=== PATIENT | male | born 1980 | race Caucasian/White ===

== ENCOUNTER → 2020-06-30 13:29 | Outpatient (REF) | payer MEDICAID, SELFPAY ==
--- NOTE | 2020-06-30 13:40 | ECG_ITS ---
Test Reason : PT ON HIGH RISK MED Blood Pressure : / mmHG Vent. Rate : 083 BPM Atrial Rate : 083 BPM P-R Int : 120 ms QRS Dur : 068 ms QT Int : 348 ms P-R-T Axes : 053 039 025 degrees QTc Int : 408 ms Normal sinus rhythm Normal ECG No previous ECGs available Referred By: Jose E Ruff Electronically Signed By:DONALDO AHUMADA MD
== END ==
LOC: HO.CARD 13:29
PROVIDERS: Visit Provider Psychiatry & Neurology Child & Adolescent Psychiatry
DX: Z79.899 Other long term (current) drug therapy (principal)
CPT/HCPCS: 93005

== ENCOUNTER 2020-07-19 20:23 | Emergency (ER) | payer MEDICAID, SELFPAY ==
[2020-07-19 20:25] VITALS: BP 163/85; PULSE 117; RESP 16; TEMP 36.3; O2SAT 100; BMI 29.6
[2020-07-19 20:39] VITALS: BP 154/85; PULSE 100; RESP 16; TEMP 36.6; O2SAT 100
[2020-07-19 21:17] LABS: COVID-19 Test Negative (Negative)
[2020-07-19 21:36] LABS: Amphetamine Screen Urine Not Detected (Not Detect); Barbiturates, Urine Not Detected (Not Detect); Benzodiazepines Screen Urine Not Detected (Not Detect); Cannabinoid Screen Urine Not Detected (Not Detect); Cocaine Screen Urine Not Detected (Not Detect); Opiate Screen Urine Not Detected (Not Detect); Phencyclidine Screen Urine Not Detected (Not Detect)
--- NOTE | 2020-07-19 21:45 | ED_ITS ---
HPI - Medical Clearance General Chief complaint: Medical Clearance Stated complaint: CRISIS Time Seen by Provider: 07/19/20 20:50 Source: patient Mode of arrival: ambulatory Limitations: no limitations History of Present Illness HPI Narrative: 39-year-old male presenting to the ED for medical clearance to go back to the detention requiring a COVID test and a drugs of abuse screen. Denies any URI or COVID like symptoms. Denies any history of drug usage. Reports he only smokes cigarettes. Denies any SI/HI/auditory visual hallucinations thoughts of self-injury. Related Information Allergies Allergy/AdvReac Type Severity Reaction Status Date / Time No Known Allergies Allergy Verified 07/19/20 20:25 Review of Systems Review of Systems: Constitutional : No Fever, No Chills ENT/Mouth : No Ear Pain, No Nasal Congestion, No sore throat Eyes: No Eye Pain, No Swelling, No Redness Cardiovascular : No Chest Pain, No SOB Respiratory : No Cough, No Sputum, No Dyspnea Gastrointestinal : No ingestions, No Nausea, No Vomiting, No Diarrhea, No Hematochezia, No Melena Genitourinary : No Dysuria, No Urinary Frequency, No Hematuria Musculoskeletal : No Myalgias Skin : No Skin Lesions, No rash Neuro : No Weakness, No Numbness, No Paresthesias, No Dizziness, No Headache Psych : No Anxiety, No Depression, No SI/HI, No AVH, No thoughts of self injury Heme/Lymph: No Lymphadenopathy Endocrine : No Polyuria, No Polydipsia Yes all other systems are reviewed and are negative PMFSH Past Medical History Attestation statement: The following information was validated with the patient. Medical History Diabetes Social History Social History Alcohol intake: never Smoking Status: Current every day smoker Use of substances other than those prescribed or required for medical reasons: No Advance Directives: No Advance Directives Information Provided: No Physical Exam Vital Signs: Vital Signs: Last Vital Signs Temp 97.8 F 07/19/20 20:39 Pulse 100 07/19/20 20:39 Resp 16 07/19/20 20:39 BP 154/85 H 07/19/20 20:39 Pulse Ox 100 07/19/20 20:39 Body Mass Index 29.6 vital signs have been reviewed as normal and appeared to be correct. Blood pressure normal. Heart rate normal. Respiration rate normal. Temperature normal. Oxygen saturation normal. Appearance: Alert. Oriented X3. No acute distress. Head: Normal external exam. Normocephalic. Atraumatic. No Lyn signs noted. No raccoon eyes noted Eyes: PERRLA. EOMI. Conjunctiva and sclera normal. Eyelids normal. ENT: EAC normal. TM's Normal. Pharynx normal. Uvula midline. Moist mucous membranes. No trismus noted. No drooling noted. No muffled voice noted. Neck: Normal inspection. Neck supple. FROM. No adenopathy. Thyroid Normal. No meningeal signs. No neck mass noted. CVS: Normal heart rate and rhythm. Heart sound normal. No murmurs noted. Pulses normal throughout. Respiratory: No respiratory distress. Painless inspiration. Breath sounds normal. No wheezes/rales/rhonchi noted. Chest nontender. No accessory muscle usage noted or decreased air movement noted. Abdomen: Soft and nontender. Bowel sounds normal in all 4 quadrants. No distention noted. No organomegaly noted. No visible injury noted. Back: No CVA tenderness. Full range of motion noted. Skin: Skin warm and dry. Normal skin color. Normal skin turgor. No rashes/lesions/lacerations noted. Extremities: No lower extremity edema. Extremities exhibit normal range of motion. Extremities nontender. Neuro: Oriented X 3. No motor deficit. No sensory deficit. Reflexes normal. Psych: Appearance grossly normal, well-kept, mental status normal, speech and movement normal, speech clear, Is cooperative. Normal thought process. Normal thought content. Normal good insight. Judgment good. Course Course Course Narrative: COVID swab negative. Drugs of abuse screen negative for all drugs. Patient denies any SI/HI/auditory visual hallucinations thoughts of self-injury therefore is medically cleared at this time awaiting to be picked up from the detention at this time. Patient instructed to return if any new or worsening symptoms to follow-up with primary care provider. Patient understands agrees with this plan MDM - Medical Clearance Medical Records Attestation: I reviewed the patient's medical records. Lab Data Attestation: I reviewed the patient's lab results. Labs: Lab Results 07/19/20 07/19/20 Range/Units 20:56 21:09 Urine Opiates Screen Not Detected (Not Detect) Ur Barbiturates Screen Not Detected (Not Detect) Ur Phencyclidine Scrn Not Detected (Not Detect) Ur Amphetamines Screen Not Detected (Not Detect) U Benzodiazepines Scrn Not Detected (Not Detect) Urine Cocaine Screen Not Detected (Not Detect) U Marijuana (THC) Screen Not Detected (Not Detect) COVID-19 (JACKIE) Negative (Negative) COVID-19 Clin Com See Note Discharge Plan Discharge Clinical Impression: Wellness examination Patient Disposition: Home, Self-Care Instructions: Medical Clearance for Psychiatric Care (ED) Print Language: Albanian
--- NOTE | 2020-07-19 21:53 | PC.NURSE ---
[facility] NOTIFIED OF COVID NEGATIVE TEST AND THEY ARE ON THEIR WAY TO PICK PT UP TO RETURN TO [facility].
== END 2020-07-19 22:35 | disposition home or self-care (01) ==
PROVIDERS: Physician Assistant Medical; Emergency Provider Emergency Medicine Emergency Medical Services
DX: Z20.828 Contact with and (suspected) exposure to other viral communicable diseases (principal); F17.200 Nicotine dependence, unspecified, uncomplicated; Z71.6 Tobacco abuse counseling
CPT/HCPCS: 80307; 87635; 99283; 99284

== ENCOUNTER 2020-07-20 13:29 | Inpatient (IN) | payer OTHER, SELFPAY ==
[2020-07-20 13:47] VITALS: BP 135/93; PULSE 102; RESP 19; TEMP 36.3; O2SAT 99; BMI 38.4
[2020-07-20 13:57] VITALS: BP 135/93; PULSE 102; RESP 19; TEMP 36.3; O2SAT 99
--- NOTE | 2020-07-20 13:59 | ED.PSYCH ---
HPI - Psych General Chief Complaint: Psychiatric Symptoms Stated Complaint: DOES NOT FEEL SAFE AT HOME Time Seen by Provider: 07/20/20 13:57 Source: EMS Mode of arrival: EMS Limitations: no limitations History of Present Illness MD complaint: feels depressed Onset (ago): day(s) (2) Duration: constant History of same: Yes Relieving factors: none Exacerbating factors: other (worse due to half-way) Context: significant life stressor Associated psychiatric symptoms: depression and suicidal ideation Associated symptoms: denies other symptoms Treatments prior to arrival: none If self harm: admits thoughts of self harm Related Data Home Medications Medication Instructions Recorded Confirmed chlorpromazine 200 mg PO TID 07/20/20 07/20/20 docusate sodium 100 mg PO BID 07/20/20 07/20/20 insulin glargine 56 unit SUBCUT QPM 07/20/20 07/20/20 insulin lispro 1 sliding scale dose SUBCUT 07/20/20 07/20/20 USEASDIRECTD lorazepam 0.5 mg PO TID 07/20/20 07/20/20 metformin 500 mg PO BID 07/20/20 07/20/20 metoprolol tartrate 25 mg PO BID 07/20/20 07/20/20 multivitamin 1 tab PO DAILY 07/20/20 07/20/20 omeprazole 20 mg PO DAILY 07/20/20 07/20/20 sennosides [senna] 17.2 mg PO DAILY PRN 07/20/20 07/20/20 simvastatin 20 mg PO BEDTIME 07/20/20 07/20/20 Allergies Allergy/AdvReac Type Severity Reaction Status Date / Time No Known Allergies Allergy Verified 07/19/20 20:25 Review of Systems Review of Systems: Constitutional : No Fever, No Chills ENT/Mouth : No Ear Pain, No Nasal Congestion, No sore throat Eyes: No Eye Pain, No Swelling, No Redness Cardiovascular : No Chest Pain, No SOB Respiratory : No Cough, No Sputum, No Dyspnea Gastrointestinal : No Nausea, No Vomiting, No Diarrhea, No Hematochezia, No Melena Genitourinary : No Dysuria, No Urinary Frequency, No Hematuria Musculoskeletal : No Myalgias Skin : No Skin Lesions, No rash Neuro : No Weakness, No Numbness, No Paresthesias, No Dizziness, No Headache Psych : positive Anxiety, positive Depression, positive SI no HI Heme/Lymph: No Lymphadenopathy Endocrine : No Polyuria, No Polydipsia All other systems reviewed and are negative [facility] Past Medical History Attestation statement: The following information was validated with the patient. Medical History Chronic mental illness Diabetes Social History Social History Alcohol intake: former Smoking Status: Current some day smoker Smoked in Last 30 Days: Yes Use of substances other than those prescribed or required for medical reasons: No Advance Directives: No Advance Directives Information Provided: No Physical Exam Vital Signs: Vital Signs: Last Vital Signs Temp 97.4 F 07/20/20 13:57 Pulse 102 H 07/20/20 13:57 Resp 19 07/20/20 13:57 BP 135/93 H 07/20/20 13:57 Pulse Ox 99 07/20/20 13:57 Body Mass Index 38.4 Appearance: Alert. Oriented X3. No acute distress. Eyes: Pupils equal, round and reactive to light. ENT: Pharynx normal. Neck: Normal inspection. Neck supple. CVS: Normal heart rate and rhythm. Pulses normal. Respiratory: No respiratory distress. Breath sounds normal. Abdomen: Soft and nontender. Skin: Skin warm and dry. Normal skin color. Normal skin turgor. Extremities: No lower extremity edema. No calf ttp Neuro: Oriented X 3. No motor deficit. No sensory deficit. CN 2 - 12 intact Psych: anxious flat affect, states he is suicidal but no plan Course Course Course Narrative: signed out pending [facility] consult MDM - Psych MDM Narrative Medical decision making narrative: 39 yo male with chronic mental illness just put into new half-way states he is unsafe and doesn't want to live there, discussed he needs to follow up with his team and [facility] he then stated he was suicidal at this time will refer to [facility] Lab Data Labs: Lab Results 07/20/20 Range/Units 14:06 Urine Opiates Screen Not Detected (Not Detect) Ur Barbiturates Screen Not Detected (Not Detect) Ur Phencyclidine Scrn Not Detected (Not Detect) Ur Amphetamines Screen Not Detected (Not Detect) U Benzodiazepines Scrn Not Detected (Not Detect) Urine Cocaine Screen Not Detected (Not Detect) U Marijuana (THC) Screen Not Detected (Not Detect) Discharge Plan Discharge Clinical Impression: Depression Qualifiers: Depression Type: unspecified Qualified Code(s): F32.9 - Major depressive disorder, single episode, unspecified Prescriptions: No Action lorazepam 0.5 mg Tablet 0.5 mg PO TID RF: 0 chlorpromazine 200 mg Tablet 200 mg PO TID RF: 0 omeprazole 20 mg Capsule,Delayed Release(Dr/Ec) 20 mg PO DAILY RF: 0 multivitamin Tablet 1 tab PO DAILY RF: 0 metformin 500 mg Tablet 500 mg PO BID RF: 0 sennosides [senna] 8.6 mg Tablet 17.2 mg PO DAILY PRN (Reason: Constipation) RF: 0 simvastatin 20 mg Tablet 20 mg PO BEDTIME RF: 0 docusate sodium 100 mg Capsule 100 mg PO BID RF: 0 insulin lispro 100 unit/mL Cartridge 1 sliding scale dose SUBCUT USEASDIRECTD RF: 0 metoprolol tartrate 25 mg Tablet 25 mg PO BID RF: 0 insulin glargine 100 unit/mL Cartridge 56 unit SUBCUT QPM RF: 0
--- NOTE | 2020-07-20 14:01 | PC.NURSE ---
Upon arrival pt cooperative with spring coverer, denied SI/HI states he feels unsafe in his alf. PT states he spent 4 months at [facility] then 4 months at [facility] after not taking his medicaitons for a long time. Pt states he is now in a [facility] alf and feels unsafe with the other residents. Pt requesting to be hospitalized, stated that he feels like hurting himself after speaking with provider.
[2020-07-20 14:41] LABS: Amphetamine Screen Urine Not Detected (Not Detect); Barbiturates, Urine Not Detected (Not Detect); Benzodiazepines Screen Urine Not Detected (Not Detect); Cannabinoid Screen Urine Not Detected (Not Detect); Cocaine Screen Urine Not Detected (Not Detect); Opiate Screen Urine Not Detected (Not Detect); Phencyclidine Screen Urine Not Detected (Not Detect)
[2020-07-20 15:51] VITALS: BP 129/76; PULSE 86; RESP 18; TEMP 36.4; O2SAT 99
[2020-07-20 15:57] LABS: Glucose, Whole Blood 245 mg/dL (60-115)
[2020-07-20] MEDS: LORazepam 1 MG TABLET PO (16:11)
[2020-07-20 18:09] LABS: Glucose, Whole Blood 302 mg/dL (60-115)
[2020-07-20] MEDS: Insulin Lispro 100 UNIT/ML 3 ML VIAL SUBCUT ×2 (18:13→21:51)
--- NOTE | 2020-07-20 19:10 | PC.NURSE ---
Report received. PT is resting in bed. Calm and cooperative. Waiting to be transferred to .
[2020-07-20 19:13] LABS: Basophils Percent Auto 0.4 % (0-2); Eosinophils Absolute Auto 0.1 X10*3/uL (0.0-0.4); Eosinophils Percent Auto 1.7 % (0-4); Hematocrit 40.8 % (42-52); Hemoglobin 14.1 g/dl (14.0-18.0); Imm Gran Abs Auto 0.02 X10*3/uL (0.00-0.03); Imm Gran Pct Auto 0.3 % (0.0-0.4); Lymphocytes Absolute Auto 2.2 X10*3/uL (1.2-4.9); Lymphocytes Percent Auto 31.6 % (20-40); Mean Corpuscular HGB Conc 34.6 g/dl (31.0-36.0); Mean Corpuscular Hemoglobin 29.5 pg (27.0-33.0); Mean Corpuscular Volume 85.4 fL (80-98); Mean Platelet Volume 8.7 fL (9.4-12.4); Monocytes Absolute Auto 0.5 X10*3/uL (0.1-1.2); Monocytes Percent Auto 7.2 % (2-11); Neutrophils Absolute Auto 4.1 X10*3/uL (2.0-8.3); Neutrophils Percent Auto 58.8 % (45-73); Platelet Count 260 X10*3/uL (160-400); Red Blood Count 4.78 X10*6/uL (4.60-5.80); Red Cell Distribution Width 12.9 % (11.0-16.0)
[2020-07-20 19:15] LABS: MANUAL DIFF FLAG NO
[2020-07-20 19:32] LABS: COVID-19 Test Negative (Negative)
[2020-07-20 19:38] LABS: Ethanol < 10 mg/dL
[2020-07-20 19:48] LABS: Alanine Aminotransferase 23 U/L (0-40); Alkaline Phosphatase 49 U/L (39-117); Anion Gap 12 (12-20); Aspartate Amino Transferase 11 U/L (5-37); Bilirubin Total 0.4 mg/dL (0.0-1.0); Blood Urea Nitrogen 9 mg/dL (9-16); Calcium 8.6 mg/dL (8.4-10.2); Carbon Dioxide 24 mmol/L (22-29); Chloride 105 mmol/L (96-108); Creatinine Clr Calc Pharmacy 121.5; Estimated Glomerular Filt Rate > 60; Glucose Random 362 mg/dL (60-115); Potassium 4.2 mmol/l (3.3-5.1); Sodium 137 mmol/L (135-145); Total Protein 5.9 g/dL (6.5-8.0)
--- NOTE | 2020-07-20 20:31 | ECG_ITS ---
Test Reason : MEDICAL CLEARANCE Blood Pressure : / mmHG Vent. Rate : 091 BPM Atrial Rate : 091 BPM P-R Int : 126 ms QRS Dur : 070 ms QT Int : 326 ms P-R-T Axes : 060 042 035 degrees QTc Int : 400 ms Normal sinus rhythm Normal ECG When compared with ECG of 30-JUN-2020 13:49, No significant change was found Referred By: Rashard Borges Electronically Signed By:LAVERN DE LA ROSA MD
[2020-07-20] MEDS: metFORMIN HCl 500 MG TABLET PO (21:39)
[2020-07-20 21:40] VITALS: BP 125/71; PULSE 95
[2020-07-20] MEDS: Docusate Sodium 100 MG CAPSULE PO (21:40)
[2020-07-20] MEDS: Atorvastatin Calcium 10 MG TABLET PO (21:40)
[2020-07-20] MEDS: LORazepam 0.5 MG TABLET PO (21:40)
[2020-07-20] MEDS: Metoprolol Tartrate 25 MG TABLET PO (21:40)
[2020-07-20 21:48] VITALS: BP 125/71; PULSE 95; RESP 18; TEMP 36.2
[2020-07-20] MEDS: Insulin Glargine,Hum.rec.anlog 100 UNIT/ML 10 ML VIAL 56 UNIT SUBCUT (21:51)
[2020-07-20 22:34] VITALS: BMI 27.9
--- NOTE | 2020-07-20 23:26 | PC.NURSE ---
Pt is a 39 year old male who presented to from [facility] ED at approximately 2215 on a CV status. Pt is COVID negative. UTox negative. CBC was within normal limits. EKG came back normal. Pt was brought to ED for suicidal ideations. Pt states he feels unsafe in his [facility] due to the other members and staff . He stated they are mean and derogatory to him. He was thinking of harming himself. Pt denies current SI/HI. Pt appears anxious but is cooperative and appropriate. Pt is on 5 minute safety checks, unlocked bathrooms. Pt is a conditional voluntary admission with a [facility] order. He did refuse Thorazine in the ED due to side effects. Pt did present with symptoms of possible TD with sporadic, involuntary tongue movements. Dr. Leigha Palmer was called for orders and notified of admission. Pt had clear thoughts, stable mood. Start treatment plan and monitor for safety.
[2020-07-21 03:37] LABS: Glucose, Whole Blood 199 mg/dL (60-115)
[2020-07-21 06:22] VITALS: BP 115/59; PULSE 95; RESP 16; TEMP 36.6; O2SAT 98
[2020-07-21] MEDS: Acetaminophen 325 MG TABLET 650 MG PO (07:06)
--- NOTE | 2020-07-21 08:06 | P.HPPS_ITS ---
HPI Chief Complaint: Suicidal Sources of Information: patient interviewed, chart reviewed and crisis/core team assessment reviewed Additional Sources of Information: None HPI Narrative: 39 SWM with Long Hx of Schizoaffective disorder and developmental delay came [facility] ER from [facility] [place] with SI. Pt unhappy about [facility]. States residents talk about him, staff yell at him making him feel unsafe. Pt not known to [facility] or [facility]. States vague SI. Wants to go to [facility] in [place] where he has a friend. 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 Wants off Thorazine. States he was at [facility] x 4 months then [facility] x 3 months till May 2020. Has [place] order (in Chart). Recent Hx X elopements from long-term with consequent non compliance with meds. Past Psychiatric History: As above. Has [facility] providers. Sees Dr Grijalva at [facility]. Is extensively connected with [facility] services Medical Evaluation Reviewed: Yes [facility] Medical History Chronic mental illness Diabetes Family History: None Social History: lives in [facility] medical home. Parents supportive. Mother and Enrico Slaughter are guardians. Single. Has a 22 years old son, not seen in long time. Has older sis and 2 younger sisters. Substance History: None except smoking Trauma History: None Diagnostics Vital Signs (24Hr): Vital Signs - 24 hr 07/20/20 13:47 07/20/20 13:57 07/20/20 15:51 Temperature 97.4 F 97.4 F 97.5 F Pulse Rate 102 H 102 H 86 Respiratory Rate 19 19 18 Blood Pressure 135/93 H 135/93 H 129/76 Pulse Oximetry 99 99 99 07/20/20 21:40 07/20/20 21:48 07/21/20 06:22 Temperature 97.2 F 97.8 F Pulse Rate 95 95 95 Respiratory Rate 18 16 Blood Pressure 125/71 125/71 115/59 L Pulse Oximetry 98 Body Mass Index 27.9 Labs Results: 07/20/20 19:05 07/20/20 19:05 Labs: Laboratory Results - last 48 hr 07/20/20 07/20/20 07/20/20 14:06 15:54 18:05 WBC RBC Hgb Hct MCV MCH MCHC RDW Plt Count MPV Immature Gran % (Auto) Neut % (Auto) Lymph % (Auto) Tucker % (Auto) Eos % (Auto) Baso % (Auto) Lymph # (Auto) Tucker # (Auto) Eos # (Auto) Baso # (Auto) Abs Immat Gran (auto) Absolute Neuts (auto) Absolute Nucleated RBC Nucleated RBC % (auto) Sodium Potassium Chloride Carbon Dioxide Anion Gap BUN Creatinine Estim Creat Clear Calc Estimated GFR POC Glucose 245 H 302 H Random Glucose Calcium Total Bilirubin AST ALT Alkaline Phosphatase Total Protein Albumin Urine Opiates Screen Not Detected Ur Barbiturates Screen Not Detected Ur Phencyclidine Scrn Not Detected Ur Amphetamines Screen Not Detected U Benzodiazepines Scrn Not Detected Urine Cocaine Screen Not Detected U Marijuana (THC) Screen Not Detected Ethyl Alcohol COVID-19 (JACKIE) [employer] 07/20/20 07/20/20 07/20/20 19:05 19:05 19:05 WBC 7.0 RBC 4.78 Hgb 14.1 Hct 40.8 L MCV 85.4 MCH 29.5 MCHC 34.6 RDW 12.9 Plt Count 260 MPV 8.7 L Immature Gran % (Auto) 0.3 Neut % (Auto) 58.8 Lymph % (Auto) 31.6 Tucker % (Auto) 7.2 Eos % (Auto) 1.7 Baso % (Auto) 0.4 Lymph # (Auto) 2.2 Tucker # (Auto) 0.5 Eos # (Auto) 0.1 Baso # (Auto) 0.0 Abs Immat Gran (auto) 0.02 Absolute Neuts (auto) 4.1 Absolute Nucleated RBC 0.000 Nucleated RBC % (auto) 0.0 Sodium 137 Potassium 4.2 Chloride 105 Carbon Dioxide 24 Anion Gap 12 BUN 9 Creatinine 0.81 Estim Creat Clear Calc 121.5 Estimated GFR > 60 POC Glucose Random Glucose 362 H* Calcium 8.6 Total Bilirubin 0.4 AST 11 ALT 23 Alkaline Phosphatase 49 Total Protein 5.9 L Albumin 4.0 Urine Opiates Screen Ur Barbiturates Screen Ur Phencyclidine Scrn Ur Amphetamines Screen U Benzodiazepines Scrn Urine Cocaine Screen U Marijuana (THC) Screen Ethyl Alcohol < 10 COVID-19 (JACKIE) [employer] 07/20/20 07/21/20 19:05 03:32 WBC RBC Hgb Hct MCV MCH MCHC RDW Plt Count MPV Immature Gran % (Auto) Neut % (Auto) Lymph % (Auto) Tucker % (Auto) Eos % (Auto) Baso % (Auto) Lymph # (Auto) Tucker # (Auto) Eos # (Auto) Baso # (Auto) Abs Immat Gran (auto) Absolute Neuts (auto) Absolute Nucleated RBC Nucleated RBC % (auto) Sodium Potassium Chloride Carbon Dioxide Anion Gap BUN Creatinine Estim Creat Clear Calc Estimated GFR POC Glucose 199 H Random Glucose Calcium Total Bilirubin AST ALT Alkaline Phosphatase Total Protein Albumin Urine Opiates Screen Ur Barbiturates Screen Ur Phencyclidine Scrn Ur Amphetamines Screen U Benzodiazepines Scrn Urine Cocaine Screen U Marijuana (THC) Screen Ethyl Alcohol COVID-19 (JACKIE) Negative COVID-19 Clin Com See Note Meds/Allergies Meds Home Medications Acetaminophen (Acetaminophen 325 Mg Tablet) 650 mg PO Q6H PRN PRN Reason: Headache/Pain Mild Scale (1-3) Last Admin: 07/21/20 07:06 Dose: 650 mg Documented by: Al Hydroxide/Mg Hydroxide (Magnesium Hydrox/Alum Hydrox 30 Ml Oral.Susp) 30 ml PO Q6H PRN PRN Reason: Heartburn/Nausea Aripiprazole (Aripiprazole 5 Mg Tablet) 5 mg PO DAILY [facility] Atorvastatin Calcium (Atorvastatin Calcium 10 Mg Tablet) 10 mg PO BEDTIME [facility] Last Admin: 07/21/20 21:36 Dose: 10 mg Documented by: Docusate Sodium (Docusate Sodium 100 Mg Capsule) 100 mg PO BID [facility] Last Admin: 07/21/20 21:36 Dose: 100 mg Documented by: Insulin Glargine (Insulin Glargine,Hum.Rec.Anlog 100 Unit/Ml 10 Ml Vial) 56 unit SUBCUT BEDTIME [facility] Last Admin: 07/21/20 21:47 Dose: 56 unit Documented by: Insulin Human Lispro (Insulin Lispro 100 Unit/Ml 3 Ml Vial) 0 unit SUBCUT QIDACHS [facility]; Protocol Last Admin: 07/21/20 21:47 Dose: 8 unit Documented by: Lorazepam (Lorazepam 0.5 Mg Tablet) 0.5 mg PO TID [facility] Last Admin: 07/21/20 21:36 Dose: 0.5 mg Documented by: Magnesium Hydroxide (Milk Of Magnesia 30 Ml Oral.Susp) 30 ml PO DAILY PRN PRN Reason: Constipation Metformin HCl (Metformin Hcl 500 Mg Tablet) 500 mg PO BID [facility] Last Admin: 07/21/20 21:36 Dose: 500 mg Documented by: Metoprolol Tartrate (Metoprolol Tartrate 25 Mg Tablet) 25 mg PO BID [facility]; Protocol Last Admin: 07/21/20 21:36 Dose: 25 mg Documented by: Multivitamins/Vitamin C (Multivitamin Tablet) 1 tab PO DAILY [facility] Last Admin: 07/21/20 08:58 Dose: 1 tab Documented by: Nicotine (Nicotine 21 Mg Patch.Td24) 21 mg TRANSDERMA DAILY [facility] Last Admin: 07/21/20 12:46 Dose: Not Given Documented by: Omeprazole (Omeprazole 20 Mg Capsule.Dr) 20 mg PO DAILY [facility] Last Admin: 07/21/20 08:59 Dose: 20 mg Documented by: Senna (Sennosides 8.6 Mg Tablet) 17.2 mg PO DAILY PRN PRN Reason: Constipation Trazodone HCl (Trazodone Hcl 50 Mg Tablet) 50 mg PO BEDTIME PRN PRN Reason: Insomnia Last Admin: 07/21/20 21:36 Dose: 50 mg Documented by: Allergies Allergies Allergy/AdvReac Type Severity Reaction Status Date / Time No Known Allergies Allergy Verified 07/19/20 20:25 Mental Status Exam Mental Status Exam Patient Appearance: Disheveled Patient Orientation: Person, Place, Time and Situation Level of Consciousness: Restless Patient Behavior: Appropriate and Cooperative Mood Description: Depressed, Anxious and Nervous Affect Description: Anxious Patient Cognition Impaired: No Ability to Follow Directions: Good Speech Pattern: Perseverating Memory Description: Intact Hallucinations: None Delusions: Paranoid Ideation Thought Process: Intact Thought Content: positive for Suicidal Ideation (brief/vague) Depressive Symptoms: Increased Anxiety Abnormal Motor Activity Signs and Symptoms: Agitation and Chorea (mild) Judgement: Poor Assessment & Plan Assessment & Plan (1) Schizoaffective disorder, bipolar type: Status: Acute Code(s): F25.0 - Schizoaffective disorder, bipolar type (2) Developmental delay, mild: Status: Acute Code(s): R62.50 - Unspecified lack of expected normal physiological development in childhood (3) Diabetes: Status: Acute Code(s): E11.9 - Type 2 diabetes mellitus without complications Assessment and Plan: q15, cv Get copy [place] order OLEG Casanova. Start Abilify , then Maintena/Aristrada Collateral from guardian Coordinate care with [facility] Groups Diabetes care Patient educated on: diagnosis Informed Consent: understands Reason for continued inpatient stay Substantial Risk for: harm to self, inability to function, rapid decompensation and med/psych decompensation
[2020-07-21] MEDS: Multivitamin TABLET 1 TAB PO (08:58)
[2020-07-21] MEDS: Omeprazole 20 MG CAPSULE.DR PO (08:59)
[2020-07-21] MEDS: Docusate Sodium 100 MG CAPSULE PO ×2 (08:59→21:36)
[2020-07-21] MEDS: LORazepam 0.5 MG TABLET PO ×3 (08:59→21:36)
[2020-07-21] MEDS: metFORMIN HCl 500 MG TABLET PO ×2 (08:59→21:36)
[2020-07-21 09:00] VITALS: BP 115/62; PULSE 95
[2020-07-21] MEDS: Metoprolol Tartrate 25 MG TABLET PO ×2 (09:00→21:36)
[2020-07-21] MEDS: Insulin Lispro 100 UNIT/ML 3 ML VIAL SUBCUT ×4 (09:02→21:47)
[2020-07-21 09:10] LABS: Glucose, Whole Blood 263 mg/dL (60-115)
[2020-07-21 09:18] LABS: Glucose, Whole Blood 263 mg/dL (60-115)
[2020-07-21 11:18] LABS: Glucose, Whole Blood 358 mg/dL (60-115)
[2020-07-21 11:56] LABS: Glucose, Whole Blood 358 mg/dL (60-115)
[2020-07-21 17:05] LABS: Glucose, Whole Blood 213 mg/dL (60-115)
[2020-07-21 21:34] LABS: Glucose, Whole Blood 311 mg/dL (60-115)
[2020-07-21 21:36] VITALS: BP 117/71; PULSE 95
[2020-07-21] MEDS: traZODone HCL 50 MG TABLET PO (21:36)
[2020-07-21] MEDS: Atorvastatin Calcium 10 MG TABLET PO (21:36)
[2020-07-21] MEDS: Insulin Glargine,Hum.rec.anlog 100 UNIT/ML 10 ML VIAL 56 UNIT SUBCUT (21:47)
[2020-07-21 21:48] VITALS: TEMP 36.2
[2020-07-22 06:00] VITALS: BP 107/63; PULSE 87; TEMP 36.2
[2020-07-22 06:37] LABS: Glucose, Whole Blood 219 mg/dL (60-115)
[2020-07-22] MEDS: Insulin Lispro 100 UNIT/ML 3 ML VIAL SUBCUT ×4 (08:52→20:48)
[2020-07-22] MEDS: Multivitamin TABLET 1 TAB PO (08:53)
[2020-07-22] MEDS: Docusate Sodium 100 MG CAPSULE PO ×2 (08:53→20:47)
[2020-07-22 08:54] VITALS: BP 107/63; PULSE 87
[2020-07-22] MEDS: LORazepam 0.5 MG TABLET PO ×3 (08:54→20:47)
[2020-07-22] MEDS: metFORMIN HCl 500 MG TABLET PO ×2 (08:54→20:47)
[2020-07-22] MEDS: ARIPiprazole 5 MG TABLET PO (08:54)
[2020-07-22] MEDS: Metoprolol Tartrate 25 MG TABLET PO ×2 (08:54→20:48)
[2020-07-22] MEDS: Omeprazole 20 MG CAPSULE.DR PO (08:54)
--- NOTE | 2020-07-22 10:01 | HO.PSYADMNOT ---
HPI Chief Complaint: Suicidal HPI Past Psychiatric History: As above. Has CHD providers. Sees Dr Grijalva at [facility]. Is extensively connected with [facility]/DDS services [facility] Medical History (Updated 07/23/20 @ 18:09 by Leigha Tay MD) Chronic mental illness Diabetes Family History: None Social History: lives in [facility] medical home. Parents supportive. Mother and Enrico Slaughter are guardians. Single. Has a 22 years old son, not seen in long time. Has older sis and 2 younger sisters. Trauma History: None Diagnostics Vital Signs (24Hr): Vital Signs - 24 hr 07/21/20 21:36 07/21/20 21:48 07/22/20 06:00 Temperature 97.1 F 97.2 F Pulse Rate 95 87 Blood Pressure 117/71 107/63 07/22/20 08:54 Temperature Pulse Rate 87 Blood Pressure 107/63 Body Mass Index 27.9 Labs Results: 07/20/20 19:05 07/20/20 19:05 Labs: Laboratory Results - last 48 hr 07/20/20 07/20/20 07/20/20 14:06 15:54 18:05 WBC RBC Hgb Hct MCV MCH MCHC RDW Plt Count MPV Immature Gran % (Auto) Neut % (Auto) Lymph % (Auto) [place] % (Auto) Eos % (Auto) Baso % (Auto) Lymph # (Auto) [place] # (Auto) Eos # (Auto) Baso # (Auto) Abs Immat Gran (auto) Absolute Neuts (auto) Absolute Nucleated RBC Nucleated RBC % (auto) Sodium Potassium Chloride Carbon Dioxide Anion Gap BUN Creatinine Estim Creat Clear Calc Estimated GFR POC Glucose 245 H 302 H Random Glucose Calcium Total Bilirubin AST ALT Alkaline Phosphatase Total Protein Albumin Urine Opiates Screen Not Detected Ur Barbiturates Screen Not Detected Ur Phencyclidine Scrn Not Detected Ur Amphetamines Screen Not Detected U Benzodiazepines Scrn Not Detected Urine Cocaine Screen Not Detected U Marijuana (THC) Screen Not Detected Ethyl Alcohol COVID-19 (JACKIE) COVID-19 Clin Com 07/20/20 07/20/20 07/20/20 19:05 19:05 19:05 WBC 7.0 RBC 4.78 Hgb 14.1 Hct 40.8 L MCV 85.4 MCH 29.5 MCHC 34.6 RDW 12.9 Plt Count 260 MPV 8.7 L Immature Gran % (Auto) 0.3 Neut % (Auto) 58.8 Lymph % (Auto) 31.6 [place] % (Auto) 7.2 Eos % (Auto) 1.7 Baso % (Auto) 0.4 Lymph # (Auto) 2.2 [place] # (Auto) 0.5 Eos # (Auto) 0.1 Baso # (Auto) 0.0 Abs Immat Gran (auto) 0.02 Absolute Neuts (auto) 4.1 Absolute Nucleated RBC 0.000 Nucleated RBC % (auto) 0.0 Sodium 137 Potassium 4.2 Chloride 105 Carbon Dioxide 24 Anion Gap 12 BUN 9 Creatinine 0.81 Estim Creat Clear Calc 121.5 Estimated GFR > 60 POC Glucose Random Glucose 362 H* Calcium 8.6 Total Bilirubin 0.4 AST 11 ALT 23 Alkaline Phosphatase 49 Total Protein 5.9 L Albumin 4.0 Urine Opiates Screen Ur Barbiturates Screen Ur Phencyclidine Scrn Ur Amphetamines Screen U Benzodiazepines Scrn Urine Cocaine Screen U Marijuana (THC) Screen Ethyl Alcohol < 10 COVID-19 (JACKIE) COVID-Built In 07/20/20 07/20/20 07/20/20 19:05 21:26 21:26 WBC RBC Hgb Hct MCV MCH MCHC RDW Plt Count MPV Immature Gran % (Auto) Neut % (Auto) Lymph % (Auto) [place] % (Auto) Eos % (Auto) Baso % (Auto) Lymph # (Auto) [place] # (Auto) Eos # (Auto) Baso # (Auto) Abs Immat Gran (auto) Absolute Neuts (auto) Absolute Nucleated RBC Nucleated RBC % (auto) Sodium Potassium Chloride Carbon Dioxide Anion Gap BUN Creatinine Estim Creat Clear Calc Estimated GFR POC Glucose 263 H 263 H Random Glucose Calcium Total Bilirubin AST ALT Alkaline Phosphatase Total Protein Albumin Urine Opiates Screen Ur Barbiturates Screen Ur Phencyclidine Scrn Ur Amphetamines Screen U Benzodiazepines Scrn Urine Cocaine Screen U Marijuana (THC) Screen Ethyl Alcohol COVID-19 (JACKIE) Negative COVID-Built In See Note 07/21/20 07/21/20 07/21/20 03:32 11:13 11:13 WBC RBC Hgb Hct MCV MCH MCHC RDW Plt Count MPV Immature Gran % (Auto) Neut % (Auto) Lymph % (Auto) [place] % (Auto) Eos % (Auto) Baso % (Auto) Lymph # (Auto) [place] # (Auto) Eos # (Auto) Baso # (Auto) Abs Immat Gran (auto) Absolute Neuts (auto) Absolute Nucleated RBC Nucleated RBC % (auto) Sodium Potassium Chloride Carbon Dioxide Anion Gap BUN Creatinine Estim Creat Clear Calc Estimated GFR POC Glucose 199 H 358 H* 358 H* Random Glucose Calcium Total Bilirubin AST ALT Alkaline Phosphatase Total Protein Albumin Urine Opiates Screen Ur Barbiturates Screen Ur Phencyclidine Scrn Ur Amphetamines Screen U Benzodiazepines Scrn Urine Cocaine Screen U Marijuana (THC) Screen Ethyl Alcohol COVID-19 (JACKIE) COVID-19 N[place] 07/21/20 07/21/20 07/22/20 17:01 21:31 06:29 WBC RBC Hgb Hct MCV MCH MCHC RDW Plt Count MPV Immature Gran % (Auto) Neut % (Auto) Lymph % (Auto) [place] % (Auto) Eos % (Auto) Baso % (Auto) Lymph # (Auto) [place] # (Auto) Eos # (Auto) Baso # (Auto) Abs Immat Gran (auto) Absolute Neuts (auto) Absolute Nucleated RBC Nucleated RBC % (auto) Sodium Potassium Chloride Carbon Dioxide Anion Gap BUN Creatinine Estim Creat Clear Calc Estimated GFR POC Glucose 213 H 311 H 219 H Random Glucose Calcium Total Bilirubin AST ALT Alkaline Phosphatase Total Protein Albumin Urine Opiates Screen Ur Barbiturates Screen Ur Phencyclidine Scrn Ur Amphetamines Screen U Benzodiazepines Scrn Urine Cocaine Screen U Marijuana (THC) Screen Ethyl Alcohol COVID-19 (JACKIE) COVID-19 Neronote Meds/Allergies Meds Home Medications Acetaminophen (Acetaminophen 325 Mg Tablet) 650 mg PO Q6H PRN PRN Reason: Headache/Pain Mild Scale (1-3) Last Admin: 07/22/20 15:57 Dose: 650 mg Documented by: Al Hydroxide/Mg Hydroxide (Magnesium Hydrox/Alum Hydrox 30 Ml Oral.Susp) 30 ml PO Q6H PRN PRN Reason: Heartburn/Nausea Last Admin: 07/23/20 22:05 Dose: 30 ml Documented by: Atorvastatin Calcium (Atorvastatin Calcium 10 Mg Tablet) 10 mg PO BEDTIME ALBERTO Last Admin: 07/23/20 20:40 Dose: 10 mg Documented by: Cariprazine (Cariprazine Hcl 1.5 Mg Capsule) 1.5 mg PO DAILY ALBERTO Last Admin: 07/23/20 08:14 Dose: 1.5 mg Documented by: Diphenhydramine HCl (Diphenhydramine Hcl 25 Mg Tablet) 50 mg PO Q6H PRN PRN Reason: eps Last Admin: 07/23/20 21:32 Dose: 50 mg Documented by: Docusate Sodium (Docusate Sodium 100 Mg Capsule) 100 mg PO BID [facility] Last Admin: 07/23/20 20:39 Dose: 100 mg Documented by: Insulin Glargine (Insulin Glargine,Hum.Rec.Anlog 100 Unit/Ml 10 Ml Vial) 56 unit SUBCUT BEDTIME [facility] Last Admin: 07/23/20 21:04 Dose: 56 unit Documented by: Insulin Human Lispro (Insulin Lispro 100 Unit/Ml 3 Ml Vial) 0 unit SUBCUT QIDACHS [facility]; Protocol Last Admin: 07/23/20 20:39 Dose: 8 unit Documented by: Lorazepam (Lorazepam 0.5 Mg Tablet) 0.5 mg PO TID [facility] Last Admin: 07/23/20 20:41 Dose: 0.5 mg Documented by: Lorazepam (Lorazepam 1 Mg Tablet) 1 mg PO Q6H PRN PRN Reason: Anxiety Last Admin: 07/23/20 11:21 Dose: 1 mg Documented by: Magnesium Hydroxide (Milk Of Magnesia 30 Ml Oral.Susp) 30 ml PO DAILY PRN PRN Reason: Constipation Metformin HCl (Metformin Hcl 500 Mg Tablet) 500 mg PO BID [facility] Last Admin: 07/23/20 20:40 Dose: 500 mg Documented by: Metoprolol Tartrate (Metoprolol Tartrate 25 Mg Tablet) 25 mg PO BID [facility]; Protocol Last Admin: 07/23/20 20:40 Dose: 25 mg Documented by: Multivitamins/Vitamin C (Multivitamin Tablet) 1 tab PO DAILY [facility] Last Admin: 07/23/20 08:14 Dose: 1 tab Documented by: Omeprazole (Omeprazole 20 Mg Capsule.Dr) 20 mg PO DAILY [facility] Last Admin: 07/23/20 08:13 Dose: 20 mg Documented by: Senna (Sennosides 8.6 Mg Tablet) 17.2 mg PO DAILY PRN PRN Reason: Constipation Trazodone HCl (Trazodone Hcl 50 Mg Tablet) 50 mg PO BEDTIME PRN PRN Reason: Insomnia Last Admin: 12/07/20 03:06 Dose: 50 mg Documented by: Allergies Allergies Allergy/AdvReac Type Severity Reaction Status Date / Time No Known Allergies Allergy Verified 07/19/20 20:25
--- NOTE | 2020-07-22 11:04 | HO.PSYCHPN ---
Subjective Subjective Date of Service: 07/22/20 Reason For Visit: Suicidal Subjective Notes: Conditional Voluntary Interim History: wanting prn for anxiety doesn't want to go back to assisted he has been at for a month feels they are against him- can't say how though says staff yell at pt Medication Compliance: Yes Side effects from medications: Yes (off thorazine due to TD) Attending Groups: Yes Review of Systems Acute medical concerns: No Medical Review of Systems: unchanged Mental Status Exam Mental Status Exam Patient Appearance: Disheveled and Perspiring Patient Orientation: Person, Place, Time and Situation Level of Consciousness: Awake Patient Behavior: Appropriate Mood Description: Anxious Affect Description: Blunted Patient Cognition Impaired: Yes Ability to Follow Directions: Fair Speech Pattern: Mumbled Hallucinations: Auditory Delusions: Paranoid Ideation Thought Process: Intact Thought Content: positive for [place] Depressive Symptoms: Increased Anxiety Judgement: Fair Diagnostics Vital Signs (24Hr): Vital Signs - 24 hr 07/21/20 21:36 07/21/20 21:48 07/22/20 06:00 Temperature 97.1 F 97.2 F Pulse Rate 95 87 Blood Pressure 117/71 107/63 07/22/20 08:54 Temperature Pulse Rate 87 Blood Pressure 107/63 Body Mass Index 27.9 Labs Results: 07/20/20 19:05 07/20/20 19:05 Labs: Laboratory Results - last 48 hr 07/20/20 07/20/20 07/20/20 14:06 15:54 18:05 WBC RBC Hgb Hct MCV MCH MCHC RDW Plt Count MPV Immature Gran % (Auto) Neut % (Auto) Lymph % (Auto) [place] % (Auto) Eos % (Auto) Baso % (Auto) Lymph # (Auto) [place] # (Auto) Eos # (Auto) Baso # (Auto) Abs Immat Gran (auto) Absolute Neuts (auto) Absolute Nucleated RBC Nucleated RBC % (auto) Sodium Potassium Chloride Carbon Dioxide Anion Gap BUN Creatinine Estim Creat Clear Calc Estimated GFR POC Glucose 245 H 302 H Random Glucose Calcium Total Bilirubin AST ALT Alkaline Phosphatase Total Protein Albumin Urine Opiates Screen Not Detected Ur Barbiturates Screen Not Detected Ur Phencyclidine Scrn Not Detected Ur Amphetamines Screen Not Detected U Benzodiazepines Scrn Not Detected Urine Cocaine Screen Not Detected U Marijuana (THC) Screen Not Detected Ethyl Alcohol COVID-19 (JACKIE) COVID-19 Clin Com 07/20/20 07/20/20 07/20/20 19:05 19:05 19:05 WBC 7.0 RBC 4.78 Hgb 14.1 Hct 40.8 L MCV 85.4 MCH 29.5 MCHC 34.6 RDW 12.9 Plt Count 260 MPV 8.7 L Immature Gran % (Auto) 0.3 Neut % (Auto) 58.8 Lymph % (Auto) 31.6 [place] % (Auto) 7.2 Eos % (Auto) 1.7 Baso % (Auto) 0.4 Lymph # (Auto) 2.2 [place] # (Auto) 0.5 Eos # (Auto) 0.1 Baso # (Auto) 0.0 Abs Immat Gran (auto) 0.02 Absolute Neuts (auto) 4.1 Absolute Nucleated RBC 0.000 Nucleated RBC % (auto) 0.0 Sodium 137 Potassium 4.2 Chloride 105 Carbon Dioxide 24 Anion Gap 12 BUN 9 Creatinine 0.81 Estim Creat Clear Calc 121.5 Estimated GFR > 60 POC Glucose Random Glucose 362 H* Calcium 8.6 Total Bilirubin 0.4 AST 11 ALT 23 Alkaline Phosphatase 49 Total Protein 5.9 L Albumin 4.0 Urine Opiates Screen Ur Barbiturates Screen Ur Phencyclidine Scrn Ur Amphetamines Screen U Benzodiazepines Scrn Urine Cocaine Screen U Marijuana (THC) Screen Ethyl Alcohol < 10 COVID-19 (JACKIE) COVID-19 [employer] Com 07/20/20 07/20/20 07/20/20 19:05 21:26 21:26 WBC RBC Hgb Hct MCV MCH MCHC RDW Plt Count MPV Immature Gran % (Auto) Neut % (Auto) Lymph % (Auto) [place] % (Auto) Eos % (Auto) Baso % (Auto) Lymph # (Auto) [place] # (Auto) Eos # (Auto) Baso # (Auto) Abs Immat Gran (auto) Absolute Neuts (auto) Absolute Nucleated RBC Nucleated RBC % (auto) Sodium Potassium Chloride Carbon Dioxide Anion Gap BUN Creatinine Estim Creat Clear Calc Estimated GFR POC Glucose 263 H 263 H Random Glucose Calcium Total Bilirubin AST ALT Alkaline Phosphatase Total Protein Albumin Urine Opiates Screen Ur Barbiturates Screen Ur Phencyclidine Scrn Ur Amphetamines Screen U Benzodiazepines Scrn Urine Cocaine Screen U Marijuana (THC) Screen Ethyl Alcohol COVID-19 (JACKIE) Negative COVID-19 Clin Com See Note 07/21/20 07/21/20 07/21/20 03:32 11:13 11:13 WBC RBC Hgb Hct MCV MCH MCHC RDW Plt Count MPV Immature Gran % (Auto) Neut % (Auto) Lymph % (Auto) [place] % (Auto) Eos % (Auto) Baso % (Auto) Lymph # (Auto) [place] # (Auto) Eos # (Auto) Baso # (Auto) Abs Immat Gran (auto) Absolute Neuts (auto) Absolute Nucleated RBC Nucleated RBC % (auto) Sodium Potassium Chloride Carbon Dioxide Anion Gap BUN Creatinine Estim Creat Clear Calc Estimated GFR POC Glucose 199 H 358 H* 358 H* Random Glucose Calcium Total Bilirubin AST ALT Alkaline Phosphatase Total Protein Albumin Urine Opiates Screen Ur Barbiturates Screen Ur Phencyclidine Scrn Ur Amphetamines Screen U Benzodiazepines Scrn Urine Cocaine Screen U Marijuana (THC) Screen Ethyl Alcohol COVID-19 (JACKIE) COVID-myContactCard 07/21/20 07/21/20 07/22/20 17:01 21:31 06:29 WBC RBC Hgb Hct MCV MCH MCHC RDW Plt Count MPV Immature Gran % (Auto) Neut % (Auto) Lymph % (Auto) [place] % (Auto) Eos % (Auto) Baso % (Auto) Lymph # (Auto) [place] # (Auto) Eos # (Auto) Baso # (Auto) Abs Immat Gran (auto) Absolute Neuts (auto) Absolute Nucleated RBC Nucleated RBC % (auto) Sodium Potassium Chloride Carbon Dioxide Anion Gap BUN Creatinine Estim Creat Clear Calc Estimated GFR POC Glucose 213 H 311 H 219 H Random Glucose Calcium Total Bilirubin AST ALT Alkaline Phosphatase Total Protein Albumin Urine Opiates Screen Ur Barbiturates Screen Ur Phencyclidine Scrn Ur Amphetamines Screen U Benzodiazepines Scrn Urine Cocaine Screen U Marijuana (THC) Screen Ethyl Alcohol COVID-19 (JACKIE) [id number] Medications Medications Current Medications Generic Name Dose Route Start Last Admin Trade Name Freq PRN Reason Stop Dose Admin Acetaminophen 650 mg 07/20/20 22:03 07/21/20 07:06 Acetaminophen 325 Mg Tablet PO 650 mg Q6H PRN Administration Headache/Pain Mild Scale (1-3) Al Hydroxide/Mg Hydroxide 30 ml 07/20/20 21:57 Magnesium Hydrox/Alum Hydrox 30 Ml Oral.Susp PO Q6H PRN Heartburn/Nausea Atorvastatin Calcium 10 mg 07/20/20 21:00 07/21/20 21:36 Atorvastatin Calcium 10 Mg Tablet PO 10 mg BEDTIME ALBERTO Administration Cariprazine 1.5 mg 07/22/20 10:05 Cariprazine Hcl 1.5 Mg Capsule PO DAILY ALBERTO Docusate Sodium 100 mg 07/20/20 21:00 07/22/20 08:53 Docusate Sodium 100 Mg Capsule PO 100 mg BID ALBERTO Administration Insulin Glargine 56 unit 07/20/20 21:00 07/21/20 21:47 Insulin Glargine,Hum.Rec.Anlog 100 Unit/Ml 10 Ml Vial SUBCUT 56 unit BEDTIME ALBERTO Administration Insulin Human Lispro 0 unit 07/20/20 16:30 07/22/20 08:52 Insulin Lispro 100 Unit/Ml 3 Ml Vial SUBCUT 4 unit QIDACHS COUNTS INCLUDE 234 BEDS AT THE [facility] Administration Protocol Lorazepam 0.5 mg 07/20/20 21:00 07/22/20 08:54 Lorazepam 0.5 Mg Tablet PO 0.5 mg TID ALBERTO Administration Magnesium Hydroxide 30 ml 07/20/20 22:03 Milk Of Magnesia 30 Ml Oral.Susp PO DAILY PRN Constipation Metformin HCl 500 mg 07/20/20 21:00 07/22/20 08:54 Metformin Hcl 500 Mg Tablet PO 500 mg BID COUNTS INCLUDE 234 BEDS AT THE [facility] Administration Metoprolol Tartrate 25 mg 07/20/20 21:00 07/22/20 08:54 Metoprolol Tartrate 25 Mg Tablet PO 25 mg BID ALBERTO Administration Protocol Multivitamins/Vitamin C 1 tab 07/21/20 09:00 07/22/20 08:53 Multivitamin Tablet PO 1 tab DAILY COUNTS INCLUDE 234 BEDS AT THE [facility] Administration Nicotine 21 mg 07/21/20 11:35 07/22/20 08:58 Nicotine 21 Mg Patch.Td24 TRANSDERMA Not Given DAILY COUNTS INCLUDE 234 BEDS AT THE [facility] Omeprazole 20 mg 07/21/20 09:00 07/22/20 08:54 Omeprazole 20 Mg Capsule.Dr PO 20 mg DAILY COUNTS INCLUDE 234 BEDS AT THE [facility] Administration Senna 17.2 mg 07/20/20 15:34 Sennosides 8.6 Mg Tablet PO DAILY PRN Constipation Trazodone HCl 50 mg 07/20/20 22:03 07/21/20 21:36 Trazodone Hcl 50 Mg Tablet PO 50 mg BEDTIME PRN Administration Insomnia Allergies Allergies Allergy/AdvReac Type Severity Reaction Status Date / Time No Known Allergies Allergy Verified 07/19/20 20:25 Assessment & Plan Assessment & Plan (1) Schizoaffective disorder, bipolar type: Status: Acute Code(s): F25.0 - Schizoaffective disorder, bipolar type Assessment and Plan: wanting prn for anxiety in midst of antipsychotic med change from thorazine to abilify/vraylar will give prn lorazepam (2) Developmental delay, mild: Status: Acute Code(s): R62.50 - Unspecified lack of expected normal physiological development in childhood Assessment and Plan: static - needs things explained mutliptle times (3) Diabetes: Status: Acute Code(s): E11.9 - Type 2 diabetes mellitus without complications Assessment and Plan: continue to monitor had high bs Greater than 50% of the session was spent on counseling and/or coordination of care
[2020-07-22] MEDS: Cariprazine HCl 1.5 MG CAPSULE PO (11:26)
[2020-07-22 11:34] LABS: Glucose, Whole Blood 248 mg/dL (60-115)
--- NOTE | 2020-07-22 14:25 | PC.NURSE ---
SUBMITTED AND RETRACTED 3 DAY NOTICE THIS SHIFT, DR MASON INFORMED
[2020-07-22] MEDS: Acetaminophen 325 MG TABLET 650 MG PO (15:57)
[2020-07-22 16:34] LABS: Glucose, Whole Blood 283 mg/dL (60-115)
[2020-07-22 18:00] VITALS: BP 119/56; PULSE 86; TEMP 36.6
[2020-07-22] MEDS: Atorvastatin Calcium 10 MG TABLET PO (20:47)
[2020-07-22 20:48] VITALS: BP 119/62; PULSE 86
[2020-07-22] MEDS: Insulin Glargine,Hum.rec.anlog 100 UNIT/ML 10 ML VIAL 56 UNIT SUBCUT (20:49)
[2020-07-22] MEDS: traZODone HCL 50 MG TABLET PO (20:54)
[2020-07-22 22:54] LABS: Glucose, Whole Blood 305 mg/dL (60-115)
[2020-07-23 06:00] VITALS: BP 90/54; PULSE 81; TEMP 36.4
[2020-07-23 06:23] LABS: Glucose, Whole Blood 142 mg/dL (60-115)
[2020-07-23 08:13] VITALS: BP 90/54; PULSE 81
[2020-07-23] MEDS: metFORMIN HCl 500 MG TABLET PO ×2 (08:13→20:40)
[2020-07-23] MEDS: Docusate Sodium 100 MG CAPSULE PO ×2 (08:13→20:39)
[2020-07-23] MEDS: Omeprazole 20 MG CAPSULE.DR PO (08:13)
[2020-07-23] MEDS: Metoprolol Tartrate 25 MG TABLET PO ×2 (08:13→20:40)
[2020-07-23] MEDS: Multivitamin TABLET 1 TAB PO (08:14)
[2020-07-23] MEDS: Cariprazine HCl 1.5 MG CAPSULE PO (08:14)
[2020-07-23] MEDS: LORazepam 0.5 MG TABLET PO ×3 (08:17→20:41)
[2020-07-23] MEDS: LORazepam 1 MG TABLET PO (11:21)
--- NOTE | 2020-07-23 11:37 | HO.PSYCHPN ---
Subjective Subjective Date of Service: 07/23/20 Reason For Visit: Suicidal Subjective Notes: Conditional Voluntary Interim History: [facility] to go back to [facility] now- not sure how he will handle paranoia still co of swollen tongue slurred speech off of thorazine started benadryl for that today Medication Compliance: Yes Side effects from medications: Yes (tongue protrusion and slurred speech) Attending Groups: Yes Review of Systems Acute medical concerns: No Medical Review of Systems: unchanged Mental Status Exam Mental Status Exam Patient Appearance: Disheveled and Perspiring Patient Orientation: Person, Place, Time and Situation Level of Consciousness: Awake Patient Behavior: Appropriate Mood Description: Anxious Affect Description: Blunted Patient Cognition Impaired: Yes Ability to Follow Directions: Fair Speech Pattern: Mumbled Hallucinations: Auditory Delusions: Paranoid Ideation Thought Process: Intact Thought Content: positive for [place] Depressive Symptoms: Increased Anxiety Judgement: Fair Diagnostics Vital Signs (24Hr): Vital Signs - 24 hr 07/22/20 18:00 07/22/20 20:48 07/23/20 06:00 Temperature 98 F 97.6 F Pulse Rate 86 86 81 Blood Pressure 119/56 L 119/62 90/54 L 07/23/20 08:13 Temperature Pulse Rate 81 Blood Pressure 90/54 L Body Mass Index 27.9 Labs Results: 07/20/20 19:05 07/20/20 19:05 Labs: Laboratory Results - last 48 hr 07/21/20 07/21/20 07/21/20 11:13 17:01 21:31 POC Glucose 358 H* 213 H 311 H 07/22/20 07/22/20 07/22/20 06:29 11:30 16:31 POC Glucose 219 H 248 H 283 H 07/22/20 07/23/20 20:42 06:13 POC Glucose 305 H 142 H Medications Medications Current Medications Generic Name Dose Route Start Last Admin Trade Name Freq PRN Reason Stop Dose Admin Acetaminophen 650 mg 07/20/20 22:03 07/22/20 15:57 Acetaminophen 325 Mg Tablet PO 650 mg Q6H PRN Administration Headache/Pain Mild Scale (1-3) Al Hydroxide/Mg Hydroxide 30 ml 07/20/20 21:57 Magnesium Hydrox/Alum Hydrox 30 Ml Oral.Susp PO Q6H PRN Heartburn/Nausea Atorvastatin Calcium 10 mg 07/20/20 21:00 12/05/20 20:47 Atorvastatin Calcium 10 Mg Tablet PO 10 mg BEDTIME ALBERTO Administration Cariprazine 1.5 mg 07/22/20 10:05 07/23/20 08:14 Cariprazine Hcl 1.5 Mg Capsule PO 1.5 mg DAILY ALBERTO Administration Docusate Sodium 100 mg 07/20/20 21:00 07/23/20 08:13 Docusate Sodium 100 Mg Capsule PO 100 mg BID ALBERTO Administration Insulin Glargine 56 unit 07/20/20 21:00 07/22/20 20:49 Insulin Glargine,Hum.Rec.Anlog 100 Unit/Ml 10 Ml Vial SUBCUT 1 unit BEDTIME ALBERTO Administration Insulin Human Lispro 0 unit 07/20/20 16:30 07/23/20 08:21 Insulin Lispro 100 Unit/Ml 3 Ml Vial SUBCUT Not Given QIDACHS [facility] Protocol Lorazepam 0.5 mg 07/20/20 21:00 07/23/20 08:17 Lorazepam 0.5 Mg Tablet PO 0.5 mg TID ALBERTO Administration Lorazepam 1 mg 07/22/20 13:56 07/23/20 11:21 Lorazepam 1 Mg Tablet PO 1 mg Q6H PRN Administration Anxiety Magnesium Hydroxide 30 ml 07/20/20 22:03 Milk Of Magnesia 30 Ml Oral.Susp PO DAILY PRN Constipation Metformin HCl 500 mg 07/20/20 21:00 07/23/20 08:13 Metformin Hcl 500 Mg Tablet PO 500 mg BID ALBERTO Administration Metoprolol Tartrate 25 mg 07/20/20 21:00 07/23/20 08:13 Metoprolol Tartrate 25 Mg Tablet PO 25 mg BID ALBERTO Administration Protocol Multivitamins/Vitamin C 1 tab 07/21/20 09:00 07/23/20 08:14 Multivitamin Tablet PO 1 tab DAILY ALBERTO Administration Omeprazole 20 mg 07/21/20 09:00 07/23/20 08:13 Omeprazole 20 Mg Capsule.Dr PO 20 mg DAILY [facility] Administration Senna 17.2 mg 07/20/20 15:34 Sennosides 8.6 Mg Tablet PO DAILY PRN Constipation Trazodone HCl 50 mg 07/20/20 22:03 07/22/20 20:54 Trazodone Hcl 50 Mg Tablet PO 50 mg BEDTIME PRN Administration Insomnia Allergies Allergies Allergy/AdvReac Type Severity Reaction Status Date / Time No Known Allergies Allergy Verified 07/19/20 20:25 Assessment & Plan Assessment & Plan (1) Schizoaffective disorder, bipolar type: Status: Acute Code(s): F25.0 - Schizoaffective disorder, bipolar type Assessment and Plan: recent dc thorazine due to TD now on vraylar and abilify low doses (2) Developmental delay, mild: Status: Acute Code(s): R62.50 - Unspecified lack of expected normal physiological development in childhood Assessment and Plan: static (3) Diabetes: Status: Acute Code(s): E11.9 - Type 2 diabetes mellitus without complications Assessment and Plan: following poc (4) Tardive dyskinesia: Status: Acute Code(s): G24.01 - Drug induced subacute dyskinesia Assessment and Plan: started benadryl Greater than 50% of the session was spent on counseling and/or coordination of care
[2020-07-23] MEDS: Insulin Lispro 100 UNIT/ML 3 ML VIAL SUBCUT ×3 (11:52→20:39)
[2020-07-23 12:01] LABS: Glucose, Whole Blood 208 mg/dL (60-115)
[2020-07-23] MEDS: diphenhydrAMINE HCL 25 MG TABLET 50 MG PO ×2 (13:22→21:32)
[2020-07-23 16:31] LABS: Glucose, Whole Blood 254 mg/dL (60-115)
[2020-07-23 18:00] VITALS: BP 120/72; PULSE 89; TEMP 35.9
[2020-07-23 20:40] VITALS: BP 120/72; PULSE 89
[2020-07-23] MEDS: Atorvastatin Calcium 10 MG TABLET PO (20:40)
[2020-07-23 20:48] LABS: Glucose, Whole Blood 343 mg/dL (60-115)
[2020-07-23] MEDS: Insulin Glargine,Hum.rec.anlog 100 UNIT/ML 10 ML VIAL 56 UNIT SUBCUT (21:04)
[2020-07-23] MEDS: traZODone HCL 50 MG TABLET PO (21:09)
[2020-07-23] MEDS: Magnesium Hydrox/Alum Hydrox 30 ML ORAL.SUSP PO (22:05)
[2020-07-24] MEDS: traZODone HCL 50 MG TABLET PO ×2 (03:06→21:21)
[2020-07-24 06:10] VITALS: BP 108/64; PULSE 82; RESP 16; TEMP 37.2
[2020-07-24 06:57] LABS: Glucose, Whole Blood 164 mg/dL (60-115)
--- NOTE | 2020-07-24 08:19 | HO.PSYCHPN ---
Subjective Subjective Date of Service: 07/24/20 Reason For Visit: Suicidal Interim History: Very worried about returning to nursing home. Steates he feels unsafe and will hurt himself as people talk about him, yell at him. States his guardians want him to go to ?[facility]. Case DW Dr Grijalva: No response to Abilify. Pt has been verbally approved for Vraylar. Julius amendment underway per Dr Cordoba Pt started on Vraylar. Tongue movements are less. Review of Systems Review of Systems Constitutional : No Fever, No Chills ENT/Mouth : No Ear Pain, No Nasal Congestion, No sore throat Eyes: No Eye Pain, No Swelling, No Redness Cardiovascular : No Chest Pain, No SOB Respiratory : No Cough, No Sputum, No Dyspnea Gastrointestinal : No Nausea, No Vomiting, No Diarrhea, No Hematochezia, No Melena Genitourinary : No Dysuria, No Urinary Frequency, No Hematuria Musculoskeletal : No Myalgias Skin : No Skin Lesions, No rash Neuro : No Weakness, No Numbness, No Paresthesias, No Dizziness, No Headache Psych : positive Anxiety, positive Depression, positive SI no HI Heme/Lymph: No Lymphadenopathy Endocrine : No Polyuria, No Polydipsia All other systems reviewed and are negative Mental Status Exam Mental Status Exam Patient Appearance: Disheveled Patient Orientation: Person, Place, Time and Situation Level of Consciousness: Awake Patient Behavior: Appropriate Mood Description: Anxious Affect Description: Blunted Patient Cognition Impaired: Yes Ability to Follow Directions: Fair Speech Pattern: Perseverating and Mumbled Memory Description: Intact Delusions: Paranoid Ideation and Ideas of Reference Judgement: Poor Diagnostics Vital Signs (24Hr): Vital Signs - 24 hr 07/23/20 18:00 07/23/20 20:40 07/24/20 06:10 Temperature 96.7 F L 98.9 F Pulse Rate 89 89 82 Respiratory Rate 16 Blood Pressure 120/72 120/72 108/64 Body Mass Index 27.9 Labs Results: 07/20/20 19:05 07/20/20 19:05 Labs: Laboratory Results - last 48 hr 07/22/20 07/22/20 07/22/20 11:30 16:31 20:42 POC Glucose 248 H 283 H 305 H 07/23/20 07/23/20 07/23/20 06:13 11:48 16:27 POC Glucose 142 H 208 H 254 H 07/23/20 07/24/20 20:33 06:32 POC Glucose 343 H 164 H Medications Medications Current Medications Generic Name Dose Route Start Last Admin Trade Name Freq PRN Reason Stop Dose Admin Acetaminophen 650 mg 07/20/20 22:03 07/22/20 15:57 Acetaminophen 325 Mg Tablet PO 650 mg Q6H PRN Administration Headache/Pain Mild Scale (1-3) Al Hydroxide/Mg Hydroxide 30 ml 07/20/20 21:57 07/23/20 22:05 Magnesium Hydrox/Alum Hydrox 30 Ml Oral.Susp PO 30 ml Q6H PRN Administration Heartburn/Nausea Atorvastatin Calcium 10 mg 07/20/20 21:00 07/23/20 20:40 Atorvastatin Calcium 10 Mg Tablet PO 10 mg BEDTIME ALBERTO Administration Cariprazine 1.5 mg 07/22/20 10:05 07/23/20 08:14 Cariprazine Hcl 1.5 Mg Capsule PO 1.5 mg DAILY ALBERTO Administration Diphenhydramine HCl 50 mg 07/23/20 13:15 07/23/20 21:32 Diphenhydramine Hcl 25 Mg Tablet PO 50 mg Q6H PRN Administration eps Docusate Sodium 100 mg 07/20/20 21:00 07/23/20 20:39 Docusate Sodium 100 Mg Capsule PO 100 mg BID ALBERTO Administration Insulin Glargine 56 unit 07/20/20 21:00 07/23/20 21:04 Insulin Glargine,Hum.Rec.Anlog 100 Unit/Ml 10 Ml Vial SUBCUT 56 unit BEDTIME ALBERTO Administration Insulin Human Lispro 0 unit 07/20/20 16:30 07/23/20 20:39 Insulin Lispro 100 Unit/Ml 3 Ml Vial SUBCUT 8 unit QIDACHS ALBERTO Administration Protocol Lorazepam 0.5 mg 07/20/20 21:00 07/23/20 20:41 Lorazepam 0.5 Mg Tablet PO 0.5 mg TID ALBERTO Administration Lorazepam 1 mg 07/22/20 13:56 07/23/20 11:21 Lorazepam 1 Mg Tablet PO 1 mg Q6H PRN Administration Anxiety Magnesium Hydroxide 30 ml 07/20/20 22:03 Milk Of Magnesia 30 Ml Oral.Susp PO DAILY PRN Constipation Metformin HCl 500 mg 07/20/20 21:00 07/23/20 20:40 Metformin Hcl 500 Mg Tablet PO 500 mg BID ALBERTO Administration Metoprolol Tartrate 25 mg 07/20/20 21:00 07/23/20 20:40 Metoprolol Tartrate 25 Mg Tablet PO 25 mg BID ALBERTO Administration Protocol Multivitamins/Vitamin C 1 tab 07/21/20 09:00 07/23/20 08:14 Multivitamin Tablet PO 1 tab DAILY ALBERTO Administration Omeprazole 20 mg 07/21/20 09:00 07/23/20 08:13 Omeprazole 20 Mg Capsule. PO 20 mg DAILY ALBERTO Administration Senna 17.2 mg 07/20/20 15:34 Sennosides 8.6 Mg Tablet PO DAILY PRN Constipation Trazodone HCl 50 mg 07/20/20 22:03 07/24/20 03:06 Trazodone Hcl 50 Mg Tablet PO 50 mg BEDTIME PRN Administration Insomnia Allergies Allergies Allergy/AdvReac Type Severity Reaction Status Date / Time No Known Allergies Allergy Verified 07/19/20 20:25 Assessment & Plan Assessment & Plan (1) Schizoaffective disorder, bipolar type: Status: Acute Code(s): F25.0 - Schizoaffective disorder, bipolar type Assessment and Plan: recent dc thorazine due to TD now on vraylar. Coordinate with legal guardians/Dr Grijalva (2) Developmental delay, mild: Status: Acute Code(s): R62.50 - Unspecified lack of expected normal physiological development in childhood Assessment and Plan: static (3) Diabetes: Status: Acute Code(s): E11.9 - Type 2 diabetes mellitus without complications Assessment and Plan: following poc (4) Tardive dyskinesia: Status: Acute Code(s): G24.01 - Drug induced subacute dyskinesia Assessment and Plan: started benadryl Greater than 50% of the session was spent on counseling and/or coordination of care
[2020-07-24 08:28] VITALS: BP 108/64; PULSE 82
[2020-07-24] MEDS: Cariprazine HCl 1.5 MG CAPSULE PO (08:28)
[2020-07-24] MEDS: Multivitamin TABLET 1 TAB PO (08:28)
[2020-07-24] MEDS: Metoprolol Tartrate 25 MG TABLET PO ×2 (08:28→21:11)
[2020-07-24] MEDS: metFORMIN HCl 500 MG TABLET PO ×2 (08:28→21:10)
[2020-07-24] MEDS: LORazepam 0.5 MG TABLET PO ×3 (08:29→21:12)
[2020-07-24] MEDS: Docusate Sodium 100 MG CAPSULE PO ×2 (08:29→21:10)
[2020-07-24] MEDS: Omeprazole 20 MG CAPSULE.DR PO (08:29)
[2020-07-24] MEDS: Insulin Lispro 100 UNIT/ML 3 ML VIAL SUBCUT ×4 (08:53→21:10)
[2020-07-24 11:27] LABS: Glucose, Whole Blood 167 mg/dL (60-115)
[2020-07-24 17:15] LABS: Glucose, Whole Blood 254 mg/dL (60-115)
[2020-07-24 17:40] VITALS: BP 116/56; PULSE 87; TEMP 36.4
[2020-07-24] MEDS: diphenhydrAMINE HCL 25 MG TABLET 50 MG PO (18:55)
[2020-07-24 21:01] LABS: Glucose, Whole Blood 215 mg/dL (60-115)
[2020-07-24] MEDS: Insulin Glargine,Hum.rec.anlog 100 UNIT/ML 10 ML VIAL 56 UNIT SUBCUT (21:06)
[2020-07-24] MEDS: Atorvastatin Calcium 10 MG TABLET PO (21:10)
[2020-07-24 21:11] VITALS: BP 116/56; PULSE 87
[2020-07-25] MEDS: Acetaminophen 325 MG TABLET 650 MG PO (02:51)
[2020-07-25] MEDS: traZODone HCL 50 MG TABLET PO ×2 (02:51→20:36)
[2020-07-25] MEDS: diphenhydrAMINE HCL 25 MG TABLET 50 MG PO ×2 (02:51→20:36)
[2020-07-25 06:11] LABS: Glucose, Whole Blood 290 mg/dL (60-115)
[2020-07-25 06:30] VITALS: BP 101/49; PULSE 70; RESP 16; TEMP 36.8; O2SAT 97
[2020-07-25] MEDS: Insulin Lispro 100 UNIT/ML 3 ML VIAL SUBCUT ×4 (08:14→20:19)
[2020-07-25 08:15] VITALS: BP 101/49; PULSE 70
[2020-07-25] MEDS: Docusate Sodium 100 MG CAPSULE PO ×2 (08:15→20:17)
[2020-07-25] MEDS: Metoprolol Tartrate 25 MG TABLET PO ×2 (08:15→20:17)
[2020-07-25] MEDS: metFORMIN HCl 500 MG TABLET PO ×2 (08:16→20:17)
[2020-07-25] MEDS: Multivitamin TABLET 1 TAB PO (08:16)
[2020-07-25] MEDS: Cariprazine HCl 1.5 MG CAPSULE PO (08:16)
[2020-07-25] MEDS: Omeprazole 20 MG CAPSULE.DR PO (08:16)
[2020-07-25] MEDS: LORazepam 0.5 MG TABLET PO ×3 (08:16→20:17)
--- NOTE | 2020-07-25 10:53 | P.PNPSI_ITS ---
Subjective Subjective Date of Service: 07/25/20 Reason For Visit: Suicidal Subjective Notes: Conditional Voluntary Interim History: [facility] about [facility]. Steates he feels unsafe and will hurt himself as people talk about him, yell at him. States his guardians want him to go to ?[facility]. Case DW Dr Grijalva: No response to Abilify. Pt has been verbally approved for Vraylar. Julius amendment underway per Dr Cordoba Pt started on Vraylar. Tongue movements are less. We discussed [facility] or [facility] not an option. Vraylar to 3 mg Medication Compliance: Yes Side effects from medications: No Attending Groups: Yes Review of Systems Review of Systems Constitutional : No Fever, No Chills ENT/Mouth : No Ear Pain, No Nasal Congestion, No sore throat Eyes: No Eye Pain, No Swelling, No Redness Cardiovascular : No Chest Pain, No SOB Respiratory : No Cough, No Sputum, No Dyspnea Gastrointestinal : No Nausea, No Vomiting, No Diarrhea, No Hematochezia, No Melena Genitourinary : No Dysuria, No Urinary Frequency, No Hematuria Musculoskeletal : No Myalgias Skin : No Skin Lesions, No rash Neuro : No Weakness, No Numbness, No Paresthesias, No Dizziness, No Headache Psych : positive Anxiety, positive Depression, positive SI no HI Heme/Lymph: No Lymphadenopathy Endocrine : No Polyuria, No Polydipsia All other systems reviewed and are negative Mental Status Exam Mental Status Exam Patient Appearance: Disheveled Patient Orientation: Person, Place, Time and Situation Level of Consciousness: Awake Patient Behavior: Appropriate Mood Description: Anxious Affect Description: Blunted Patient Cognition Impaired: Yes Ability to Follow Directions: Fair Speech Pattern: Perseverating and Mumbled Memory Description: Intact Diagnostics Vital Signs (24Hr): Vital Signs - 24 hr 07/25/20 18:00 07/25/20 20:17 07/26/20 06:40 Temperature 97.9 F 98.3 F Pulse Rate 88 88 76 Respiratory Rate 18 Blood Pressure 115/70 115/70 104/53 L Pulse Oximetry 97 07/26/20 09:35 Temperature Pulse Rate 76 Respiratory Rate Blood Pressure 104/53 L Pulse Oximetry Body Mass Index 27.9 Labs Results: 07/20/20 19:05 07/20/20 19:05 Labs: Laboratory Results - last 48 hr 07/24/20 07/24/20 07/24/20 11:23 17:11 20:57 POC Glucose 167 H 254 H 215 H 07/25/20 07/25/20 07/25/20 06:00 11:48 16:59 POC Glucose 290 H 179 H 299 H 07/25/20 07/26/20 20:07 06:09 POC Glucose 296 H 127 H Medications Medications Current Medications Generic Name Dose Route Start Last Admin Trade Name Freq PRN Reason Stop Dose Admin Acetaminophen 650 mg 07/20/20 22:03 07/25/20 02:51 Acetaminophen 325 Mg Tablet PO 650 mg Q6H PRN Administration Headache/Pain Mild Scale (1-3) Al Hydroxide/Mg Hydroxide 30 ml 07/20/20 21:57 07/23/20 22:05 Magnesium Hydrox/Alum Hydrox 30 Ml Oral.Susp PO 30 ml Q6H PRN Administration Heartburn/Nausea Atorvastatin Calcium 10 mg 07/20/20 21:00 07/25/20 20:18 Atorvastatin Calcium 10 Mg Tablet PO 10 mg BEDTIME ALBERTO Administration Cariprazine 3 mg 07/26/20 09:00 07/26/20 09:35 Cariprazine Hcl 3 Mg Capsule PO 3 mg DAILY ALBERTO Administration Diphenhydramine HCl 50 mg 07/23/20 13:15 07/25/20 20:36 Diphenhydramine Hcl 25 Mg Tablet PO 50 mg Q6H PRN Administration eps Docusate Sodium 100 mg 07/20/20 21:00 07/26/20 09:35 Docusate Sodium 100 Mg Capsule PO 100 mg BID ALBERTO Administration Insulin Glargine 56 unit 07/20/20 21:00 07/25/20 20:18 Insulin Glargine,Hum.Rec.Anlog 100 Unit/Ml 10 Ml Vial SUBCUT 56 unit BEDTIME ALBERTO Administration Insulin Human Lispro 0 unit 07/20/20 16:30 07/26/20 08:44 Insulin Lispro 100 Unit/Ml 3 Ml Vial SUBCUT Not Given QIDACHS [facility] Protocol Lorazepam 1 mg 07/22/20 13:56 07/23/20 11:21 Lorazepam 1 Mg Tablet PO 1 mg Q6H PRN Administration Anxiety Magnesium Hydroxide 30 ml 07/20/20 22:03 Milk Of Magnesia 30 Ml Oral.Susp PO DAILY PRN Constipation Metformin HCl 500 mg 07/20/20 21:00 07/26/20 09:34 Metformin Hcl 500 Mg Tablet PO 500 mg BID ALBERTO Administration Metoprolol Tartrate 25 mg 07/20/20 21:00 07/26/20 09:35 Metoprolol Tartrate 25 Mg Tablet PO 25 mg BID ALBERTO Administration Protocol Multivitamins/Vitamin C 1 tab 07/21/20 09:00 07/26/20 09:35 Multivitamin Tablet PO 1 tab DAILY ALBERTO Administration Omeprazole 20 mg 07/21/20 09:00 07/26/20 09:35 Omeprazole 20 Mg Capsule. PO 20 mg DAILY ALBERTO Administration Senna 17.2 mg 07/20/20 15:34 Sennosides 8.6 Mg Tablet PO DAILY PRN Constipation Trazodone HCl 50 mg 07/20/20 22:03 07/25/20 20:36 Trazodone Hcl 50 Mg Tablet PO 50 mg BEDTIME PRN Administration Insomnia Allergies Allergies Allergy/AdvReac Type Severity Reaction Status Date / Time No Known Allergies Allergy Verified 07/19/20 20:25 Assessment & Plan Assessment & Plan (1) Schizoaffective disorder, bipolar type: Status: Acute Code(s): F25.0 - Schizoaffective disorder, bipolar type Assessment and Plan: recent dc thorazine due to TD now on vraylar. Coordinate with legal guardians/Dr Grijalva (2) Developmental delay, mild: Status: Acute Code(s): R62.50 - Unspecified lack of expected normal physiological development in childhood Assessment and Plan: static (3) Diabetes: Status: Acute Code(s): E11.9 - Type 2 diabetes mellitus without complications Assessment and Plan: following poc (4) Tardive dyskinesia: Status: Acute Code(s): G24.01 - Drug induced subacute dyskinesia Assessment and Plan: Ct Vtraylar 3. Plan for provider meeting Greater than 50% of the session was spent on counseling and/or coordination of care
[2020-07-25 11:52] LABS: Glucose, Whole Blood 179 mg/dL (60-115)
[2020-07-25 17:18] LABS: Glucose, Whole Blood 299 mg/dL (60-115)
[2020-07-25 18:00] VITALS: BP 115/70; PULSE 88; TEMP 36.6
[2020-07-25 20:17] VITALS: BP 115/70; PULSE 88
[2020-07-25] MEDS: Insulin Glargine,Hum.rec.anlog 100 UNIT/ML 10 ML VIAL 56 UNIT SUBCUT (20:18)
[2020-07-25] MEDS: Atorvastatin Calcium 10 MG TABLET PO (20:18)
[2020-07-25 21:28] LABS: Glucose, Whole Blood 296 mg/dL (60-115)
[2020-07-26 06:40] VITALS: BP 104/53; PULSE 76; RESP 18; TEMP 36.8; O2SAT 97
[2020-07-26 07:01] LABS: Glucose, Whole Blood 127 mg/dL (60-115)
[2020-07-26] MEDS: metFORMIN HCl 500 MG TABLET PO ×2 (09:34→20:43)
[2020-07-26 09:35] VITALS: BP 104/53; PULSE 76
[2020-07-26] MEDS: Omeprazole 20 MG CAPSULE.DR PO (09:35)
[2020-07-26] MEDS: Multivitamin TABLET 1 TAB PO (09:35)
[2020-07-26] MEDS: Metoprolol Tartrate 25 MG TABLET PO ×2 (09:35→20:44)
[2020-07-26] MEDS: Docusate Sodium 100 MG CAPSULE PO ×2 (09:35→20:43)
[2020-07-26] MEDS: Cariprazine HCl 3 MG CAPSULE PO (09:35)
--- NOTE | 2020-07-26 10:55 | HO.PSYCHPN ---
Subjective Subjective Date of Service: 07/26/20 Reason For Visit: Suicidal Interim History: Remains fixated on not going to . We discussed [facility] or [facility] not an option. Vraylar to 3 mg All provider meeting on Fri Review of Systems Review of Systems Constitutional : No Fever, No Chills ENT/Mouth : No Ear Pain, No Nasal Congestion, No sore throat Eyes: No Eye Pain, No Swelling, No Redness Cardiovascular : No Chest Pain, No SOB Respiratory : No Cough, No Sputum, No Dyspnea Gastrointestinal : No Nausea, No Vomiting, No Diarrhea, No Hematochezia, No Melena Genitourinary : No Dysuria, No Urinary Frequency, No Hematuria Musculoskeletal : No Myalgias Skin : No Skin Lesions, No rash Neuro : No Weakness, No Numbness, No Paresthesias, No Dizziness, No Headache Psych : positive Anxiety, positive Depression, positive SI no HI Heme/Lymph: No Lymphadenopathy Endocrine : No Polyuria, No Polydipsia All other systems reviewed and are negative Mental Status Exam Mental Status Exam Patient Appearance: Disheveled Patient Orientation: Person, Place, Time and Situation Level of Consciousness: Awake Patient Behavior: Appropriate Mood Description: Anxious Affect Description: Blunted Patient Cognition Impaired: Yes Ability to Follow Directions: Fair Speech Pattern: Perseverating and Mumbled Memory Description: Intact Diagnostics Vital Signs (24Hr): Vital Signs - 24 hr 07/25/20 18:00 07/25/20 20:17 07/26/20 06:40 Temperature 97.9 F 98.3 F Pulse Rate 88 88 76 Respiratory Rate 18 Blood Pressure 115/70 115/70 104/53 L Pulse Oximetry 97 07/26/20 09:35 Temperature Pulse Rate 76 Respiratory Rate Blood Pressure 104/53 L Pulse Oximetry Body Mass Index 27.9 Labs Results: 07/20/20 19:05 07/20/20 19:05 Labs: Laboratory Results - last 48 hr 07/24/20 07/24/20 07/24/20 11:23 17:11 20:57 POC Glucose 167 H 254 H 215 H 07/25/20 07/25/20 07/25/20 06:00 11:48 16:59 POC Glucose 290 H 179 H 299 H 07/25/20 07/26/20 20:07 06:09 POC Glucose 296 H 127 H Medications Medications Current Medications Generic Name Dose Route Start Last Admin Trade Name Freq PRN Reason Stop Dose Admin Acetaminophen 650 mg 07/20/20 22:03 07/25/20 02:51 Acetaminophen 325 Mg Tablet PO 650 mg Q6H PRN Administration Headache/Pain Mild Scale (1-3) Al Hydroxide/Mg Hydroxide 30 ml 07/20/20 21:57 07/23/20 22:05 Magnesium Hydrox/Alum Hydrox 30 Ml Oral.Susp PO 30 ml Q6H PRN Administration Heartburn/Nausea Atorvastatin Calcium 10 mg 07/20/20 21:00 07/25/20 20:18 Atorvastatin Calcium 10 Mg Tablet PO 10 mg BEDTIME ALBERTO Administration Cariprazine 3 mg 07/26/20 09:00 07/26/20 09:35 Cariprazine Hcl 3 Mg Capsule PO 3 mg DAILY ALBERTO Administration Diphenhydramine HCl 50 mg 07/23/20 13:15 07/25/20 20:36 Diphenhydramine Hcl 25 Mg Tablet PO 50 mg Q6H PRN Administration eps Docusate Sodium 100 mg 07/20/20 21:00 07/26/20 09:35 Docusate Sodium 100 Mg Capsule PO 100 mg BID ALBERTO Administration Insulin Glargine 56 unit 07/20/20 21:00 07/25/20 20:18 Insulin Glargine,Hum.Rec.Anlog 100 Unit/Ml 10 Ml Vial SUBCUT 56 unit BEDTIME ALBERTO Administration Insulin Human Lispro 0 unit 07/20/20 16:30 07/26/20 08:44 Insulin Lispro 100 Unit/Ml 3 Ml Vial SUBCUT Not Given QIDACHS [facility] Protocol Lorazepam 1 mg 07/22/20 13:56 07/23/20 11:21 Lorazepam 1 Mg Tablet PO 1 mg Q6H PRN Administration Anxiety Magnesium Hydroxide 30 ml 07/20/20 22:03 Milk Of Magnesia 30 Ml Oral.Susp PO DAILY PRN Constipation Metformin HCl 500 mg 07/20/20 21:00 07/26/20 09:34 Metformin Hcl 500 Mg Tablet PO 500 mg BID ALBERTO Administration Metoprolol Tartrate 25 mg 07/20/20 21:00 07/26/20 09:35 Metoprolol Tartrate 25 Mg Tablet PO 25 mg BID ALBERTO Administration Protocol Multivitamins/Vitamin C 1 tab 07/21/20 09:00 07/26/20 09:35 Multivitamin Tablet PO 1 tab DAILY ALBERTO Administration Omeprazole 20 mg 07/21/20 09:00 07/26/20 09:35 Omeprazole 20 Mg Capsule. PO 20 mg DAILY ALBERTO Administration Senna 17.2 mg 07/20/20 15:34 Sennosides 8.6 Mg Tablet PO DAILY PRN Constipation Trazodone HCl 50 mg 07/20/20 22:03 07/25/20 20:36 Trazodone Hcl 50 Mg Tablet PO 50 mg BEDTIME PRN Administration Insomnia Allergies Allergies Allergy/AdvReac Type Severity Reaction Status Date / Time No Known Allergies Allergy Verified 07/19/20 20:25 Assessment & Plan Assessment & Plan (1) Schizoaffective disorder, bipolar type: Status: Acute Code(s): F25.0 - Schizoaffective disorder, bipolar type Assessment and Plan: recent dc thorazine due to TD now on vraylar. Coordinate with legal guardians/Dr Grijalva Provider meeting Fri (2) Developmental delay, mild: Status: Acute Code(s): R62.50 - Unspecified lack of expected normal physiological development in childhood Assessment and Plan: static (3) Diabetes: Status: Acute Code(s): E11.9 - Type 2 diabetes mellitus without complications Assessment and Plan: following poc (4) Tardive dyskinesia: Status: Acute Code(s): G24.01 - Drug induced subacute dyskinesia Assessment and Plan: Ct Vtraylar 3. Plan for provider meeting Greater than 50% of the session was spent on counseling and/or coordination of care
[2020-07-26] MEDS: Insulin Lispro 100 UNIT/ML 3 ML VIAL SUBCUT ×3 (12:14→20:43)
--- NOTE | 2020-07-26 12:21 | P.DS_ITS ---
DS: Providers Provider Date of admission: 07/20/20 22:04 Primary care physician: Unknown Physician DS: Diagnosis Discharge Diagnosis (1) Schizoaffective disorder, bipolar type: Status: Acute (2) Developmental delay, mild: Status: Acute (3) Diabetes: Status: Acute (4) Tardive dyskinesia: Status: Acute DS: Medications Discharge Medications Home Medications: Home Medications Medication Instructions Recorded Confirmed chlorpromazine 200 mg PO TID 07/20/20 07/20/20 docusate sodium 100 mg PO BID 07/20/20 07/20/20 insulin glargine 56 unit SUBCUT QPM 07/20/20 07/20/20 insulin lispro 1 sliding scale dose SUBCUT 07/20/20 07/20/20 USEASDIRECTD lorazepam 0.5 mg PO TID 07/20/20 07/20/20 metformin 500 mg PO BID 07/20/20 07/20/20 metoprolol tartrate 25 mg PO BID 07/20/20 07/20/20 multivitamin 1 tab PO DAILY 07/20/20 07/20/20 omeprazole 20 mg PO DAILY 07/20/20 07/20/20 sennosides [senna] 17.2 mg PO DAILY PRN 07/20/20 07/20/20 simvastatin 20 mg PO BEDTIME 07/20/20 07/20/20 Discharge Plan Discharge Discharge Medications: No Action lorazepam 0.5 mg Tablet 0.5 mg PO TID RF: 0 chlorpromazine 200 mg Tablet 200 mg PO TID RF: 0 omeprazole 20 mg Capsule,Delayed Release(Dr/Ec) 20 mg PO DAILY RF: 0 multivitamin Tablet 1 tab PO DAILY RF: 0 metformin 500 mg Tablet 500 mg PO BID RF: 0 sennosides [senna] 8.6 mg Tablet 17.2 mg PO DAILY PRN (Reason: Constipation) RF: 0 simvastatin 20 mg Tablet 20 mg PO BEDTIME RF: 0 docusate sodium 100 mg Capsule 100 mg PO BID RF: 0 insulin lispro 100 unit/mL Cartridge 1 sliding scale dose SUBCUT USEASDIRECTD RF: 0 metoprolol tartrate 25 mg Tablet 25 mg PO BID RF: 0 insulin glargine 100 unit/mL Cartridge 56 unit SUBCUT QPM RF: 0 Data Data Completed and Pending Completed studies during hospitalization [Text1]: 07/20/20 07/20/20 07/20/20 14:06 15:54 18:05 WBC RBC Hgb Hct MCV MCH MCHC RDW Plt Count MPV Immature Gran % (Auto) Neut % (Auto) Lymph % (Auto) [place] % (Auto) Eos % (Auto) Baso % (Auto) Lymph # (Auto) [place] # (Auto) Eos # (Auto) Baso # (Auto) Abs Immat Gran (auto) Absolute Neuts (auto) Absolute Nucleated RBC Nucleated RBC % (auto) Sodium Potassium Chloride Carbon Dioxide Anion Gap BUN Creatinine Estim Creat Clear Calc Estimated GFR POC Glucose 245 H 302 H Random Glucose Calcium Total Bilirubin AST ALT Alkaline Phosphatase Total Protein Albumin Urine Opiates Screen Not Detected Ur Barbiturates Screen Not Detected Ur Phencyclidine Scrn Not Detected Ur Amphetamines Screen Not Detected U Benzodiazepines Scrn Not Detected Urine Cocaine Screen Not Detected U Marijuana (THC) Screen Not Detected Ethyl Alcohol COVID-19 (JACKIE) COVID-19 Prixel 07/20/20 07/20/20 07/20/20 19:05 19:05 19:05 WBC 7.0 RBC 4.78 Hgb 14.1 Hct 40.8 L MCV 85.4 MCH 29.5 MCHC 34.6 RDW 12.9 Plt Count 260 MPV 8.7 L Immature Gran % (Auto) 0.3 Neut % (Auto) 58.8 Lymph % (Auto) 31.6 [place] % (Auto) 7.2 Eos % (Auto) 1.7 Baso % (Auto) 0.4 Lymph # (Auto) 2.2 [place] # (Auto) 0.5 Eos # (Auto) 0.1 Baso # (Auto) 0.0 Abs Immat Gran (auto) 0.02 Absolute Neuts (auto) 4.1 Absolute Nucleated RBC 0.000 Nucleated RBC % (auto) 0.0 Sodium 137 Potassium 4.2 Chloride 105 Carbon Dioxide 24 Anion Gap 12 BUN 9 Creatinine 0.81 Estim Creat Clear Calc 121.5 Estimated GFR > 60 POC Glucose Random Glucose 362 H* Calcium 8.6 Total Bilirubin 0.4 AST 11 ALT 23 Alkaline Phosphatase 49 Total Protein 5.9 L Albumin 4.0 Urine Opiates Screen Ur Barbiturates Screen Ur Phencyclidine Scrn Ur Amphetamines Screen U Benzodiazepines Scrn Urine Cocaine Screen U Marijuana (THC) Screen Ethyl Alcohol < 10 COVID-19 (JACKIE) COVID-19 Prixel 07/20/20 07/20/20 07/20/20 19:05 21:26 21:26 WBC RBC Hgb Hct MCV MCH MCHC RDW Plt Count MPV Immature Gran % (Auto) Neut % (Auto) Lymph % (Auto) [place] % (Auto) Eos % (Auto) Baso % (Auto) Lymph # (Auto) [place] # (Auto) Eos # (Auto) Baso # (Auto) Abs Immat Gran (auto) Absolute Neuts (auto) Absolute Nucleated RBC Nucleated RBC % (auto) Sodium Potassium Chloride Carbon Dioxide Anion Gap BUN Creatinine Estim Creat Clear Calc Estimated GFR POC Glucose 263 H 263 H Random Glucose Calcium Total Bilirubin AST ALT Alkaline Phosphatase Total Protein Albumin Urine Opiates Screen Ur Barbiturates Screen Ur Phencyclidine Scrn Ur Amphetamines Screen U Benzodiazepines Scrn Urine Cocaine Screen U Marijuana (THC) Screen Ethyl Alcohol COVID-19 (JACKIE) Negative COVID-19 Prixel See Note 07/21/20 07/21/20 07/21/20 03:32 11:13 11:13 WBC RBC Hgb Hct MCV MCH MCHC RDW Plt Count MPV Immature Gran % (Auto) Neut % (Auto) Lymph % (Auto) [place] % (Auto) Eos % (Auto) Baso % (Auto) Lymph # (Auto) [place] # (Auto) Eos # (Auto) Baso # (Auto) Abs Immat Gran (auto) Absolute Neuts (auto) Absolute Nucleated RBC Nucleated RBC % (auto) Sodium Potassium Chloride Carbon Dioxide Anion Gap BUN Creatinine Estim Creat Clear Calc Estimated GFR POC Glucose 199 H 358 H* 358 H* Random Glucose Calcium Total Bilirubin AST ALT Alkaline Phosphatase Total Protein Albumin Urine Opiates Screen Ur Barbiturates Screen Ur Phencyclidine Scrn Ur Amphetamines Screen U Benzodiazepines Scrn Urine Cocaine Screen U Marijuana (THC) Screen Ethyl Alcohol COVID-19 (JACKIE) COVID-19 Prixel 07/21/20 07/21/20 07/22/20 17:01 21:31 06:29 WBC RBC Hgb Hct MCV MCH MCHC RDW Plt Count MPV Immature Gran % (Auto) Neut % (Auto) Lymph % (Auto) [place] % (Auto) Eos % (Auto) Baso % (Auto) Lymph # (Auto) [place] # (Auto) Eos # (Auto) Baso # (Auto) Abs Immat Gran (auto) Absolute Neuts (auto) Absolute Nucleated RBC Nucleated RBC % (auto) Sodium Potassium Chloride Carbon Dioxide Anion Gap BUN Creatinine Estim Creat Clear Calc Estimated GFR POC Glucose 213 H 311 H 219 H Random Glucose Calcium Total Bilirubin AST ALT Alkaline Phosphatase Total Protein Albumin Urine Opiates Screen Ur Barbiturates Screen Ur Phencyclidine Scrn Ur Amphetamines Screen U Benzodiazepines Scrn Urine Cocaine Screen U Marijuana (THC) Screen Ethyl Alcohol COVID-19 (JACKIE) COVID-19 Bioheart Com 07/22/20 07/22/20 07/22/20 11:30 16:31 20:42 WBC RBC Hgb Hct MCV MCH MCHC RDW Plt Count MPV Immature Gran % (Auto) Neut % (Auto) Lymph % (Auto) [place] % (Auto) Eos % (Auto) Baso % (Auto) Lymph # (Auto) [place] # (Auto) Eos # (Auto) Baso # (Auto) Abs Immat Gran (auto) Absolute Neuts (auto) Absolute Nucleated RBC Nucleated RBC % (auto) Sodium Potassium Chloride Carbon Dioxide Anion Gap BUN Creatinine Estim Creat Clear Calc Estimated GFR POC Glucose 248 H 283 H 305 H Random Glucose Calcium Total Bilirubin AST ALT Alkaline Phosphatase Total Protein Albumin Urine Opiates Screen Ur Barbiturates Screen Ur Phencyclidine Scrn Ur Amphetamines Screen U Benzodiazepines Scrn Urine Cocaine Screen U Marijuana (THC) Screen Ethyl Alcohol COVID-19 (JACKIE) COVID-19 Bioheart Com 07/23/20 07/23/20 07/23/20 06:13 11:48 16:27 WBC RBC Hgb Hct MCV MCH MCHC RDW Plt Count MPV Immature Gran % (Auto) Neut % (Auto) Lymph % (Auto) [place] % (Auto) Eos % (Auto) Baso % (Auto) Lymph # (Auto) [place] # (Auto) Eos # (Auto) Baso # (Auto) Abs Immat Gran (auto) Absolute Neuts (auto) Absolute Nucleated RBC Nucleated RBC % (auto) Sodium Potassium Chloride Carbon Dioxide Anion Gap BUN Creatinine Estim Creat Clear Calc Estimated GFR POC Glucose 142 H 208 H 254 H Random Glucose Calcium Total Bilirubin AST ALT Alkaline Phosphatase Total Protein Albumin Urine Opiates Screen Ur Barbiturates Screen Ur Phencyclidine Scrn Ur Amphetamines Screen U Benzodiazepines Scrn Urine Cocaine Screen U Marijuana (THC) Screen Ethyl Alcohol COVID-19 (JACKIE) COVID-19 Prixel 07/23/20 07/24/20 07/24/20 20:33 06:32 11:23 WBC RBC Hgb Hct MCV MCH MCHC RDW Plt Count MPV Immature Gran % (Auto) Neut % (Auto) Lymph % (Auto) [place] % (Auto) Eos % (Auto) Baso % (Auto) Lymph # (Auto) [place] # (Auto) Eos # (Auto) Baso # (Auto) Abs Immat Gran (auto) Absolute Neuts (auto) Absolute Nucleated RBC Nucleated RBC % (auto) Sodium Potassium Chloride Carbon Dioxide Anion Gap BUN Creatinine Estim Creat Clear Calc Estimated GFR POC Glucose 343 H 164 H 167 H Random Glucose Calcium Total Bilirubin AST ALT Alkaline Phosphatase Total Protein Albumin Urine Opiates Screen Ur Barbiturates Screen Ur Phencyclidine Scrn Ur Amphetamines Screen U Benzodiazepines Scrn Urine Cocaine Screen U Marijuana (THC) Screen Ethyl Alcohol COVID-19 (JACKIE) COVID-19 Prixel 07/24/20 07/24/20 07/25/20 17:11 20:57 06:00 WBC RBC Hgb Hct MCV MCH MCHC RDW Plt Count MPV Immature Gran % (Auto) Neut % (Auto) Lymph % (Auto) [place] % (Auto) Eos % (Auto) Baso % (Auto) Lymph # (Auto) [place] # (Auto) Eos # (Auto) Baso # (Auto) Abs Immat Gran (auto) Absolute Neuts (auto) Absolute Nucleated RBC Nucleated RBC % (auto) Sodium Potassium Chloride Carbon Dioxide Anion Gap BUN Creatinine Estim Creat Clear Calc Estimated GFR POC Glucose 254 H 215 H 290 H Random Glucose Calcium Total Bilirubin AST ALT Alkaline Phosphatase Total Protein Albumin Urine Opiates Screen Ur Barbiturates Screen Ur Phencyclidine Scrn Ur Amphetamines Screen U Benzodiazepines Scrn Urine Cocaine Screen U Marijuana (THC) Screen Ethyl Alcohol COVID-19 (JACKIE) COVID-19 Prixel 07/25/20 07/25/20 07/25/20 11:48 16:59 20:07 WBC RBC Hgb Hct MCV MCH MCHC RDW Plt Count MPV Immature Gran % (Auto) Neut % (Auto) Lymph % (Auto) [place] % (Auto) Eos % (Auto) Baso % (Auto) Lymph # (Auto) [place] # (Auto) Eos # (Auto) Baso # (Auto) Abs Immat Gran (auto) Absolute Neuts (auto) Absolute Nucleated RBC Nucleated RBC % (auto) Sodium Potassium Chloride Carbon Dioxide Anion Gap BUN Creatinine Estim Creat Clear Calc Estimated GFR POC Glucose 179 H 299 H 296 H Random Glucose Calcium Total Bilirubin AST ALT Alkaline Phosphatase Total Protein Albumin Urine Opiates Screen Ur Barbiturates Screen Ur Phencyclidine Scrn Ur Amphetamines Screen U Benzodiazepines Scrn Urine Cocaine Screen U Marijuana (THC) Screen Ethyl Alcohol COVID-19 (JACKIE) COVID-19 Bio[facility] Com 07/26/20 06:09 WBC RBC Hgb Hct MCV MCH MCHC RDW Plt Count MPV Immature Gran % (Auto) Neut % (Auto) Lymph % (Auto) [place] % (Auto) Eos % (Auto) Baso % (Auto) Lymph # (Auto) [place] # (Auto) Eos # (Auto) Baso # (Auto) Abs Immat Gran (auto) Absolute Neuts (auto) Absolute Nucleated RBC Nucleated RBC % (auto) Sodium Potassium Chloride Carbon Dioxide Anion Gap BUN Creatinine Estim Creat Clear Calc Estimated GFR POC Glucose 127 H Random Glucose Calcium Total Bilirubin AST ALT Alkaline Phosphatase Total Protein Albumin Urine Opiates Screen Ur Barbiturates Screen Ur Phencyclidine Scrn Ur Amphetamines Screen U Benzodiazepines Scrn Urine Cocaine Screen U Marijuana (THC) Screen Ethyl Alcohol COVID-19 (JACKIE) COVID-19 Bio[facility] Com DS: Summary Time Spent with Patient Time attestation: Total time spent providing and/or coordinating discharge services:
[2020-07-26 12:22] LABS: Glucose, Whole Blood 185 mg/dL (60-115)
[2020-07-26] MEDS: LORazepam 1 MG TABLET PO (14:33)
[2020-07-26] MEDS: Milk of Magnesia 30 ML ORAL.SUSP PO (16:18)
[2020-07-26 16:31] LABS: Glucose, Whole Blood 240 mg/dL (60-115)
[2020-07-26 18:00] VITALS: BP 123/63; PULSE 87; TEMP 36.5
[2020-07-26 20:37] LABS: Glucose, Whole Blood 257 mg/dL (60-115)
[2020-07-26] MEDS: Insulin Glargine,Hum.rec.anlog 100 UNIT/ML 10 ML VIAL 56 UNIT SUBCUT (20:42)
[2020-07-26 20:44] VITALS: BP 123/63; PULSE 87
[2020-07-26] MEDS: Atorvastatin Calcium 10 MG TABLET PO (20:44)
[2020-07-26] MEDS: traZODone HCL 50 MG TABLET PO (20:51)
[2020-07-27 06:00] VITALS: BP 116/50; PULSE 72; TEMP 37.1
[2020-07-27 06:29] LABS: Glucose, Whole Blood 155 mg/dL (60-115)
[2020-07-27 07:00] VITALS: BMI 28.3
--- NOTE | 2020-07-27 07:46 | HO.PSYCHPN ---
Subjective Subjective Date of Service: 07/27/20 Reason For Visit: Suicidal Interim History: Remains fixated on not going to but now accepting We discussed Vibra or [facility] not an option. Vraylar to 3 mg All provider meeting on Fri Review of Systems Review of Systems Constitutional : No Fever, No Chills ENT/Mouth : No Ear Pain, No Nasal Congestion, No sore throat Eyes: No Eye Pain, No Swelling, No Redness Cardiovascular : No Chest Pain, No SOB Respiratory : No Cough, No Sputum, No Dyspnea Gastrointestinal : No Nausea, No Vomiting, No Diarrhea, No Hematochezia, No Melena Genitourinary : No Dysuria, No Urinary Frequency, No Hematuria Musculoskeletal : No Myalgias Skin : No Skin Lesions, No rash Neuro : No Weakness, No Numbness, No Paresthesias, No Dizziness, No Headache Psych : positive Anxiety, positive Depression, positive SI no HI Heme/Lymph: No Lymphadenopathy Endocrine : No Polyuria, No Polydipsia All other systems reviewed and are negative Mental Status Exam Mental Status Exam Patient Appearance: Disheveled Patient Orientation: Person, Place, Time and Situation Level of Consciousness: Awake Patient Behavior: Appropriate Mood Description: Anxious Affect Description: Blunted Patient Cognition Impaired: Yes Ability to Follow Directions: Fair Speech Pattern: Perseverating and Mumbled Memory Description: Intact Diagnostics Vital Signs (24Hr): Vital Signs - 24 hr 07/26/20 09:35 07/26/20 18:00 07/26/20 20:44 Temperature 97.7 F Pulse Rate 76 87 87 Blood Pressure 104/53 L 123/63 123/63 07/27/20 06:00 Temperature 98.7 F Pulse Rate 72 Blood Pressure 116/50 L Body Mass Index 27.9 Labs Results: 07/20/20 19:05 07/27/20 07:52 Labs: Laboratory Results - last 48 hr 07/25/20 07/25/20 07/25/20 11:48 16:59 20:07 POC Glucose 179 H 299 H 296 H 07/26/20 07/26/20 07/26/20 06:09 12:11 16:27 POC Glucose 127 H 185 H 240 H 07/26/20 07/27/20 20:33 06:25 POC Glucose 257 H 155 H Medications Medications Current Medications Generic Name Dose Route Start Last Admin Trade Name Freq PRN Reason Stop Dose Admin Acetaminophen 650 mg 07/20/20 22:03 07/25/20 02:51 Acetaminophen 325 Mg Tablet PO 650 mg Q6H PRN Administration Headache/Pain Mild Scale (1-3) Al Hydroxide/Mg Hydroxide 30 ml 07/20/20 21:57 07/23/20 22:05 Magnesium Hydrox/Alum Hydrox 30 Ml Oral.Susp PO 30 ml Q6H PRN Administration Heartburn/Nausea Atorvastatin Calcium 10 mg 07/20/20 21:00 07/26/20 20:44 Atorvastatin Calcium 10 Mg Tablet PO 10 mg BEDTIME ALBERTO Administration Cariprazine 3 mg 07/26/20 09:00 07/26/20 09:35 Cariprazine Hcl 3 Mg Capsule PO 3 mg DAILY ALBERTO Administration Diphenhydramine HCl 50 mg 07/23/20 13:15 07/25/20 20:36 Diphenhydramine Hcl 25 Mg Tablet PO 50 mg Q6H PRN Administration eps Docusate Sodium 100 mg 07/20/20 21:00 07/26/20 20:43 Docusate Sodium 100 Mg Capsule PO 100 mg BID ALBERTO Administration Insulin Glargine 56 unit 07/20/20 21:00 07/26/20 20:42 Insulin Glargine,Hum.Rec.Anlog 100 Unit/Ml 10 Ml Vial SUBCUT 56 unit BEDTIME ALBERTO Administration Insulin Human Lispro 0 unit 07/20/20 16:30 07/26/20 20:43 Insulin Lispro 100 Unit/Ml 3 Ml Vial SUBCUT 6 unit QIDACHS ALBERTO Administration Protocol Lorazepam 1 mg 07/22/20 13:56 07/26/20 14:33 Lorazepam 1 Mg Tablet PO 1 mg Q6H PRN Administration Anxiety Magnesium Hydroxide 30 ml 07/20/20 22:03 07/26/20 16:18 Milk Of Magnesia 30 Ml Oral.Susp PO 30 ml DAILY PRN Administration Constipation Metformin HCl 500 mg 07/20/20 21:00 07/26/20 20:43 Metformin Hcl 500 Mg Tablet PO 500 mg BID ALBERTO Administration Metoprolol Tartrate 25 mg 07/20/20 21:00 07/26/20 20:44 Metoprolol Tartrate 25 Mg Tablet PO 25 mg BID ALBERTO Administration Protocol Multivitamins/Vitamin C 1 tab 07/21/20 09:00 07/26/20 09:35 Multivitamin Tablet PO 1 tab DAILY ALBERTO Administration Omeprazole 20 mg 07/21/20 09:00 07/26/20 09:35 Omeprazole 20 Mg Capsule. PO 20 mg DAILY ALBERTO Administration Senna 17.2 mg 07/20/20 15:34 Sennosides 8.6 Mg Tablet PO DAILY PRN Constipation Trazodone HCl 50 mg 07/20/20 22:03 07/26/20 20:51 Trazodone Hcl 50 Mg Tablet PO 50 mg BEDTIME PRN Administration Insomnia Allergies Allergies Allergy/AdvReac Type Severity Reaction Status Date / Time No Known Allergies Allergy Verified 07/19/20 20:25 Assessment & Plan Assessment & Plan (1) Schizoaffective disorder, bipolar type: Status: Resolved Code(s): F25.0 - Schizoaffective disorder, bipolar type Assessment and Plan: recent dc thorazine due to TD now on vraylar. Coordinate with legal guardians/Dr Grijalva Provider meeting Fri (2) Developmental delay, mild: Code(s): R62.50 - Unspecified lack of expected normal physiological development in childhood Assessment and Plan: static (3) Diabetes: Status: Acute Code(s): E11.9 - Type 2 diabetes mellitus without complications Assessment and Plan: following poc (4) Tardive dyskinesia: Status: Acute Code(s): G24.01 - Drug induced subacute dyskinesia Assessment and Plan: Ct Vtraylar 3. Plan for provider meeting Greater than 50% of the session was spent on counseling and/or coordination of care
[2020-07-27 08:21] VITALS: BP 123/64; PULSE 74
[2020-07-27] MEDS: Metoprolol Tartrate 25 MG TABLET PO ×2 (08:21→20:57)
[2020-07-27] MEDS: Cariprazine HCl 3 MG CAPSULE PO (08:21)
[2020-07-27] MEDS: Docusate Sodium 100 MG CAPSULE PO ×2 (08:21→20:56)
[2020-07-27] MEDS: metFORMIN HCl 500 MG TABLET PO ×2 (08:21→20:56)
[2020-07-27] MEDS: Multivitamin TABLET 1 TAB PO (08:21)
[2020-07-27] MEDS: Omeprazole 20 MG CAPSULE.DR PO (08:21)
[2020-07-27] MEDS: Insulin Lispro 100 UNIT/ML 3 ML VIAL SUBCUT ×4 (08:22→20:56)
[2020-07-27 08:47] LABS: Creatinine Clr Calc Pharmacy 138.5; Estimated Glomerular Filt Rate > 60
[2020-07-27] MEDS: diphenhydrAMINE HCL 25 MG TABLET 50 MG PO (11:16)
[2020-07-27 12:03] LABS: Glucose, Whole Blood 177 mg/dL (60-115)
[2020-07-27 16:02] VITALS: BP 122/69; PULSE 86; TEMP 36.1
[2020-07-27 16:59] LABS: Glucose, Whole Blood 307 mg/dL (60-115)
[2020-07-27 20:51] LABS: Glucose, Whole Blood 281 mg/dL (60-115)
[2020-07-27] MEDS: Insulin Glargine,Hum.rec.anlog 100 UNIT/ML 10 ML VIAL 56 UNIT SUBCUT (20:52)
[2020-07-27] MEDS: Atorvastatin Calcium 10 MG TABLET PO (20:56)
[2020-07-27 20:57] VITALS: BP 122/69; PULSE 86
[2020-07-27] MEDS: traZODone HCL 50 MG TABLET PO (21:03)
[2020-07-28 06:10] VITALS: BP 109/63; PULSE 72; RESP 16; TEMP 36.4
[2020-07-28 06:26] LABS: Glucose, Whole Blood 83 mg/dL (60-115)
--- NOTE | 2020-07-28 07:43 | HO.PSYCHPN ---
Subjective Subjective Date of Service: 07/28/20 Reason For Visit: Suicidal Interim History: Now accepting return to We discussed Vibra or [facility] not an option. Vraylar 3 mg All provider meeting on Fri Review of Systems Review of Systems Constitutional : No Fever, No Chills ENT/Mouth : No Ear Pain, No Nasal Congestion, No sore throat Eyes: No Eye Pain, No Swelling, No Redness Cardiovascular : No Chest Pain, No SOB Respiratory : No Cough, No Sputum, No Dyspnea Gastrointestinal : No Nausea, No Vomiting, No Diarrhea, No Hematochezia, No Melena Genitourinary : No Dysuria, No Urinary Frequency, No Hematuria Musculoskeletal : No Myalgias Skin : No Skin Lesions, No rash Neuro : No Weakness, No Numbness, No Paresthesias, No Dizziness, No Headache Psych : positive Anxiety, positive Depression, positive SI no HI Heme/Lymph: No Lymphadenopathy Endocrine : No Polyuria, No Polydipsia All other systems reviewed and are negative Mental Status Exam Mental Status Exam Patient Appearance: Disheveled Patient Orientation: Person, Place, Time and Situation Level of Consciousness: Awake Patient Behavior: Appropriate Mood Description: Anxious Affect Description: Blunted Patient Cognition Impaired: Yes Ability to Follow Directions: Fair Speech Pattern: Perseverating and Mumbled Memory Description: Intact Diagnostics Vital Signs (24Hr): Vital Signs - 24 hr 07/27/20 08:21 07/27/20 16:02 07/27/20 20:57 Temperature 97.0 F Pulse Rate 74 86 86 Respiratory Rate Blood Pressure 123/64 122/69 122/69 07/28/20 06:10 Temperature 97.5 F Pulse Rate 72 Respiratory Rate 16 Blood Pressure 109/63 Body Mass Index 28.3 Labs Results: 07/20/20 19:05 07/27/20 07:52 Labs: Laboratory Results - last 48 hr 07/26/20 07/26/20 07/26/20 12:11 16:27 20:33 Creatinine Estim Creat Clear Calc Estimated GFR POC Glucose 185 H 240 H 257 H 07/27/20 07/27/20 07/27/20 06:25 07:52 11:59 Creatinine 0.75 Estim Creat Clear Calc 138.5 Estimated GFR > 60 POC Glucose 155 H 177 H 07/27/20 07/27/20 07/28/20 16:54 20:46 06:22 Creatinine Estim Creat Clear Calc Estimated GFR POC Glucose 307 H 281 H 83 Medications Medications Current Medications Generic Name Dose Route Start Last Admin Trade Name Freq PRN Reason Stop Dose Admin Acetaminophen 650 mg 07/20/20 22:03 07/25/20 02:51 Acetaminophen 325 Mg Tablet PO 650 mg Q6H PRN Administration Headache/Pain Mild Scale (1-3) Al Hydroxide/Mg Hydroxide 30 ml 07/20/20 21:57 07/23/20 22:05 Magnesium Hydrox/Alum Hydrox 30 Ml Oral.Susp PO 30 ml Q6H PRN Administration Heartburn/Nausea Atorvastatin Calcium 10 mg 07/20/20 21:00 07/27/20 20:56 Atorvastatin Calcium 10 Mg Tablet PO 10 mg BEDTIME ALBERTO Administration Cariprazine 3 mg 07/26/20 09:00 07/27/20 08:21 Cariprazine Hcl 3 Mg Capsule PO 3 mg DAILY ALBERTO Administration Diphenhydramine HCl 50 mg 07/23/20 13:15 07/27/20 11:16 Diphenhydramine Hcl 25 Mg Tablet PO 50 mg Q6H PRN Administration eps Docusate Sodium 100 mg 07/20/20 21:00 07/27/20 20:56 Docusate Sodium 100 Mg Capsule PO 100 mg BID ALBERTO Administration Insulin Glargine 56 unit 07/20/20 21:00 07/27/20 20:52 Insulin Glargine,Hum.Rec.Anlog 100 Unit/Ml 10 Ml Vial SUBCUT 56 unit BEDTIME ALBERTO Administration Insulin Human Lispro 0 unit 07/20/20 16:30 07/27/20 20:56 Insulin Lispro 100 Unit/Ml 3 Ml Vial SUBCUT 6 unit QIDACHS ALBERTO Administration Protocol Magnesium Hydroxide 30 ml 07/20/20 22:03 07/26/20 16:18 Milk Of Magnesia 30 Ml Oral.Susp PO 30 ml DAILY PRN Administration Constipation Metformin HCl 500 mg 07/20/20 21:00 07/27/20 20:56 Metformin Hcl 500 Mg Tablet PO 500 mg BID ALBERTO Administration Metoprolol Tartrate 25 mg 07/20/20 21:00 07/27/20 20:57 Metoprolol Tartrate 25 Mg Tablet PO 25 mg BID ALBERTO Administration Protocol Multivitamins/Vitamin C 1 tab 07/21/20 09:00 07/27/20 08:21 Multivitamin Tablet PO 1 tab DAILY ALBERTO Administration Omeprazole 20 mg 07/21/20 09:00 07/27/20 08:21 Omeprazole 20 Mg Capsule. PO 20 mg DAILY ALBERTO Administration Senna 17.2 mg 07/20/20 15:34 Sennosides 8.6 Mg Tablet PO DAILY PRN Constipation Trazodone HCl 50 mg 07/20/20 22:03 07/27/20 21:03 Trazodone Hcl 50 Mg Tablet PO 50 mg BEDTIME PRN Administration Insomnia Allergies Allergies Allergy/AdvReac Type Severity Reaction Status Date / Time No Known Allergies Allergy Verified 07/19/20 20:25 Assessment & Plan Assessment & Plan (1) Schizoaffective disorder, bipolar type: Status: Resolved Code(s): F25.0 - Schizoaffective disorder, bipolar type Assessment and Plan: recent dc thorazine due to TD now on vraylar. Coordinate with legal guardians/Dr Grijalva Provider meeting Fri (2) Developmental delay, mild: Code(s): R62.50 - Unspecified lack of expected normal physiological development in childhood Assessment and Plan: static (3) Diabetes: Status: Acute Code(s): E11.9 - Type 2 diabetes mellitus without complications Assessment and Plan: following poc (4) Tardive dyskinesia: Status: Acute Code(s): G24.01 - Drug induced subacute dyskinesia Assessment and Plan: Ct Vtraylar 3. Plan for provider meeting Greater than 50% of the session was spent on counseling and/or coordination of care
[2020-07-28 08:18] VITALS: BP 109/63; PULSE 72
[2020-07-28] MEDS: Cariprazine HCl 3 MG CAPSULE PO (08:18)
[2020-07-28] MEDS: Docusate Sodium 100 MG CAPSULE PO ×2 (08:18→21:18)
[2020-07-28] MEDS: metFORMIN HCl 500 MG TABLET PO ×2 (08:18→21:18)
[2020-07-28] MEDS: Metoprolol Tartrate 25 MG TABLET PO ×2 (08:18→21:18)
[2020-07-28] MEDS: Omeprazole 20 MG CAPSULE.DR PO (08:18)
[2020-07-28] MEDS: Multivitamin TABLET 1 TAB PO (08:18)
[2020-07-28 12:17] LABS: Glucose, Whole Blood 197 mg/dL (60-115)
[2020-07-28] MEDS: Insulin Lispro 100 UNIT/ML 3 ML VIAL SUBCUT ×3 (12:17→21:17)
[2020-07-28] MEDS: diphenhydrAMINE HCL 25 MG TABLET 50 MG PO ×2 (14:50→21:44)
[2020-07-28 17:33] LABS: Glucose, Whole Blood 221 mg/dL (60-115)
[2020-07-28 18:00] VITALS: PULSE 76; TEMP 36.4
[2020-07-28] MEDS: Insulin Glargine,Hum.rec.anlog 100 UNIT/ML 10 ML VIAL 56 UNIT SUBCUT (21:17)
[2020-07-28 21:18] VITALS: BP 140/72; PULSE 94
[2020-07-28] MEDS: Atorvastatin Calcium 10 MG TABLET PO (21:18)
[2020-07-28] MEDS: traZODone HCL 50 MG TABLET PO (21:28)
[2020-07-28 21:34] LABS: Glucose, Whole Blood 300 mg/dL (60-115)
[2020-07-28] MEDS: Milk of Magnesia 30 ML ORAL.SUSP PO (21:46)
[2020-07-29 06:00] VITALS: BP 130/67; PULSE 78; RESP 18; TEMP 36.7; O2SAT 98
[2020-07-29 06:29] LABS: Glucose, Whole Blood 134 mg/dL (60-115)
--- NOTE | 2020-07-29 07:14 | P.PNPSI_ITS ---
Subjective Subjective Date of Service: 07/29/20 Reason For Visit: Suicidal Interim History: Now accepting return to Vraylar 3 mg All provider meeting was on Fri. DC Mon Review of Systems Review of Systems Constitutional : No Fever, No Chills ENT/Mouth : No Ear Pain, No Nasal Congestion, No sore throat Eyes: No Eye Pain, No Swelling, No Redness Cardiovascular : No Chest Pain, No SOB Respiratory : No Cough, No Sputum, No Dyspnea Gastrointestinal : No Nausea, No Vomiting, No Diarrhea, No Hematochezia, No Leon na Genitourinary : No Dysuria, No Urinary Frequency, No Hematuria Musculoskeletal : No Myalgias Skin : No Skin Lesions, No rash Neuro : No Weakness, No Numbness, No Paresthesias, No Dizziness, No Headache Psych : positive Anxiety, positive Depression, positive SI no HI Heme/Lymph: No Lymphadenopathy Endocrine : No Polyuria, No Polydipsia All other systems reviewed and are negative Mental Status Exam Mental Status Exam Patient Appearance: Disheveled Patient Orientation: Person, Place, Time and Situation Level of Consciousness: Awake Patient Behavior: Appropriate Mood Description: Anxious Affect Description: Blunted Patient Cognition Impaired: Yes Ability to Follow Directions: Fair Speech Pattern: Perseverating and Mumbled Memory Description: Intact Diagnostics Vital Signs (24Hr): Vital Signs - 24 hr 07/28/20 08:18 07/28/20 18:00 07/28/20 21:18 Temperature 97.5 F Pulse Rate 72 76 94 Respiratory Rate Blood Pressure 109/63 140/72 H Pulse Oximetry 07/29/20 06:00 Temperature 98.1 F Pulse Rate 78 Respiratory Rate 18 Blood Pressure 130/67 Pulse Oximetry 98 Body Mass Index 28.3 Labs Results: 07/20/20 19:05 07/27/20 07:52 Labs: Laboratory Results - last 48 hr 07/27/20 07/27/20 07/27/20 07:52 11:59 16:54 Creatinine 0.75 Estim Creat Clear Calc 138.5 Estimated GFR > 60 POC Glucose 177 H 307 H 07/27/20 07/28/20 07/28/20 20:46 06:22 12:14 Creatinine Estim Creat Clear Calc Estimated GFR POC Glucose 281 H 83 197 H 07/28/20 07/28/20 07/29/20 17:08 21:05 06:19 Creatinine Estim Creat Clear Calc Estimated GFR POC Glucose 221 H 300 H 134 H Medications Medications Current Medications Generic Name Dose Route Start Last Admin Trade Name Freq PRN Reason Stop Dose Admin Acetaminophen 650 mg 07/20/20 22:03 07/25/20 02:51 Acetaminophen 325 Mg Tablet PO 650 mg Q6H PRN Administration Headache/Pain Mild Scale (1-3) Al Hydroxide/Mg Hydroxide 30 ml 07/20/20 21:57 07/23/20 22:05 Magnesium Hydrox/Alum Hydrox 30 Ml Oral.Susp PO 30 ml Q6H PRN Administration Heartburn/Nausea Atorvastatin Calcium 10 mg 07/20/20 21:00 07/28/20 21:18 Atorvastatin Calcium 10 Mg Tablet PO 10 mg BEDTIME ALBERTO Administration Cariprazine 3 mg 07/26/20 09:00 07/28/20 08:18 Cariprazine Hcl 3 Mg Capsule PO 3 mg DAILY ALBERTO Administration Diphenhydramine HCl 50 mg 07/23/20 13:15 07/28/20 21:44 Diphenhydramine Hcl 25 Mg Tablet PO 50 mg Q6H PRN Administration eps Docusate Sodium 100 mg 07/20/20 21:00 07/28/20 21:18 Docusate Sodium 100 Mg Capsule PO 100 mg BID ALBERTO Administration Insulin Glargine 56 unit 07/20/20 21:00 07/28/20 21:17 Insulin Glargine,Hum.Rec.Anlog 100 Unit/Ml 10 Ml Vial SUBCUT 56 unit BEDTIME ALBERTO Administration Insulin Human Lispro 0 unit 07/20/20 16:30 07/28/20 21:17 Insulin Lispro 100 Unit/Ml 3 Ml Vial SUBCUT 8 unit QIDACHS ALBERTO Administration Protocol Lorazepam 1 mg 07/28/20 16:24 Lorazepam 1 Mg Tablet PO TID PRN anxiety/restlessness Magnesium Hydroxide 30 ml 07/20/20 22:03 07/28/20 21:46 Milk Of Magnesia 30 Ml Oral.Susp PO 30 ml DAILY PRN Administration Constipation Metformin HCl 500 mg 07/20/20 21:00 07/28/20 21:18 Metformin Hcl 500 Mg Tablet PO 500 mg BID ALBERTO Administration Metoprolol Tartrate 25 mg 07/20/20 21:00 07/28/20 21:18 Metoprolol Tartrate 25 Mg Tablet PO 25 mg BID ALBERTO Administration Protocol Multivitamins/Vitamin C 1 tab 07/21/20 09:00 07/28/20 08:18 Multivitamin Tablet PO 1 tab DAILY ALBERTO Administration Omeprazole 20 mg 07/21/20 09:00 07/28/20 08:18 Omeprazole 20 Mg Capsule. PO 20 mg DAILY ALBERTO Administration Senna 17.2 mg 07/20/20 15:34 Sennosides 8.6 Mg Tablet PO DAILY PRN Constipation Trazodone HCl 50 mg 07/20/20 22:03 07/28/20 21:28 Trazodone Hcl 50 Mg Tablet PO 50 mg BEDTIME PRN Administration Insomnia Allergies Allergies Allergy/AdvReac Type Severity Reaction Status Date / Time No Known Allergies Allergy Verified 07/19/20 20:25 Assessment & Plan Assessment & Plan (1) Schizoaffective disorder, bipolar type: Status: Resolved Code(s): F25.0 - Schizoaffective disorder, bipolar type Assessment and Plan: recent dc thorazine due to TD now on vraylar. Coordinate with legal guardians/Dr Grijalva Provider meeting Fri (2) Developmental delay, mild: Code(s): R62.50 - Unspecified lack of expected normal physiological development in childhood Assessment and Plan: static (3) Diabetes: Status: Acute Code(s): E11.9 - Type 2 diabetes mellitus without complications Assessment and Plan: following poc (4) Tardive dyskinesia: Status: Acute Code(s): G24.01 - Drug induced subacute dyskinesia Assessment and Plan: Ct Vtraylar 3. Plan for provider meeting Greater than 50% of the session was spent on counseling and/or coordination of care
[2020-07-29 08:05] VITALS: BP 130/67; PULSE 78
[2020-07-29] MEDS: Cariprazine HCl 3 MG CAPSULE PO (08:05)
[2020-07-29] MEDS: Docusate Sodium 100 MG CAPSULE PO ×2 (08:05→21:38)
[2020-07-29] MEDS: Omeprazole 20 MG CAPSULE.DR PO (08:05)
[2020-07-29] MEDS: metFORMIN HCl 500 MG TABLET PO ×2 (08:05→21:38)
[2020-07-29] MEDS: Metoprolol Tartrate 25 MG TABLET PO ×2 (08:05→21:38)
[2020-07-29] MEDS: Multivitamin TABLET 1 TAB PO (08:05)
[2020-07-29] MEDS: diphenhydrAMINE HCL 25 MG TABLET 50 MG PO (10:19)
[2020-07-29 12:04] LABS: Glucose, Whole Blood 208 mg/dL (60-115)
[2020-07-29] MEDS: Insulin Lispro 100 UNIT/ML 3 ML VIAL SUBCUT ×3 (12:20→21:37)
[2020-07-29] MEDS: LORazepam 1 MG TABLET PO (16:18)
[2020-07-29 16:31] VITALS: BP 118/65; PULSE 85; TEMP 36.1
[2020-07-29 17:09] LABS: Glucose, Whole Blood 315 mg/dL (60-115)
[2020-07-29 21:35] LABS: Glucose, Whole Blood 283 mg/dL (60-115)
[2020-07-29] MEDS: Insulin Glargine,Hum.rec.anlog 100 UNIT/ML 10 ML VIAL 56 UNIT SUBCUT (21:35)
[2020-07-29 21:38] VITALS: BP 118/65; PULSE 85
[2020-07-29] MEDS: Atorvastatin Calcium 10 MG TABLET PO (21:38)
[2020-07-29] MEDS: traZODone HCL 50 MG TABLET PO (21:44)
[2020-07-30] MEDS: traZODone HCL 50 MG TABLET PO ×2 (02:59→21:38)
[2020-07-30] MEDS: LORazepam 1 MG TABLET PO ×2 (02:59→13:56)
[2020-07-30 05:50] VITALS: BP 98/55; PULSE 72; RESP 16; TEMP 36.8; O2SAT 95
[2020-07-30 06:20] LABS: Glucose, Whole Blood 261 mg/dL (60-115)
[2020-07-30 08:22] VITALS: BP 112/63; PULSE 80
[2020-07-30] MEDS: Cariprazine HCl 3 MG CAPSULE PO (08:22)
[2020-07-30] MEDS: Multivitamin TABLET 1 TAB PO (08:22)
[2020-07-30] MEDS: Omeprazole 20 MG CAPSULE.DR PO (08:22)
[2020-07-30] MEDS: metFORMIN HCl 500 MG TABLET PO ×2 (08:22→21:37)
[2020-07-30] MEDS: Metoprolol Tartrate 25 MG TABLET PO ×2 (08:22→21:34)
[2020-07-30] MEDS: Docusate Sodium 100 MG CAPSULE PO ×2 (08:22→21:37)
[2020-07-30] MEDS: Insulin Lispro 100 UNIT/ML 3 ML VIAL SUBCUT ×4 (08:22→21:40)
--- NOTE | 2020-07-30 08:39 | P.PNPSI_ITS ---
Subjective Subjective Date of Service: 07/30/20 Reason For Visit: Suicidal Interim History: Now accepting return to Vraylar 3 mg All provider meeting was on Fri. DC Mon Review of Systems Review of Systems Constitutional : No Fever, No Chills ENT/Mouth : No Ear Pain, No Nasal Congestion, No sore throat Eyes: No Eye Pain, No Swelling, No Redness Cardiovascular : No Chest Pain, No SOB Respiratory : No Cough, No Sputum, No Dyspnea Gastrointestinal : No Nausea, No Vomiting, No Diarrhea, No Hematochezia, No Leon na Genitourinary : No Dysuria, No Urinary Frequency, No Hematuria Musculoskeletal : No Myalgias Skin : No Skin Lesions, No rash Neuro : No Weakness, No Numbness, No Paresthesias, No Dizziness, No Headache Psych : positive Anxiety, positive Depression, positive SI no HI Heme/Lymph: No Lymphadenopathy Endocrine : No Polyuria, No Polydipsia All other systems reviewed and are negative Mental Status Exam Mental Status Exam Patient Appearance: Disheveled Patient Orientation: Person, Place, Time and Situation Level of Consciousness: Awake Patient Behavior: Appropriate Mood Description: Anxious Affect Description: Blunted Patient Cognition Impaired: Yes Ability to Follow Directions: Fair Speech Pattern: Perseverating and Mumbled Memory Description: Intact Diagnostics Vital Signs (24Hr): Vital Signs - 24 hr 07/29/20 16:31 07/29/20 21:38 07/30/20 05:50 Temperature 97.0 F 98.3 F Pulse Rate 85 85 72 Respiratory Rate 16 Blood Pressure 118/65 118/65 98/55 L Pulse Oximetry 95 07/30/20 08:22 Temperature Pulse Rate 80 Respiratory Rate Blood Pressure 112/63 Pulse Oximetry Body Mass Index 28.3 Labs Results: 07/20/20 19:05 07/27/20 07:52 Labs: Laboratory Results - last 48 hr 07/28/20 07/28/20 07/28/20 12:14 17:08 21:05 POC Glucose 197 H 221 H 300 H 07/29/20 07/29/20 07/29/20 06:19 12:01 17:05 POC Glucose 134 H 208 H 315 H 07/29/20 07/30/20 21:30 05:56 POC Glucose 283 H 261 H Medications Medications Current Medications Generic Name Dose Route Start Last Admin Trade Name Freq PRN Reason Stop Dose Admin Acetaminophen 650 mg 07/20/20 22:03 07/25/20 02:51 Acetaminophen 325 Mg Tablet PO 650 mg Q6H PRN Administration Headache/Pain Mild Scale (1-3) Al Hydroxide/Mg Hydroxide 30 ml 07/20/20 21:57 07/23/20 22:05 Magnesium Hydrox/Alum Hydrox 30 Ml Oral.Susp PO 30 ml Q6H PRN Administration Heartburn/Nausea Atorvastatin Calcium 10 mg 07/20/20 21:00 07/29/20 21:38 Atorvastatin Calcium 10 Mg Tablet PO 10 mg BEDTIME ALBERTO Administration Cariprazine 3 mg 07/26/20 09:00 07/30/20 08:22 Cariprazine Hcl 3 Mg Capsule PO 3 mg DAILY ALBERTO Administration Diphenhydramine HCl 50 mg 07/23/20 13:15 07/29/20 10:19 Diphenhydramine Hcl 25 Mg Tablet PO 50 mg Q6H PRN Administration eps Docusate Sodium 100 mg 07/20/20 21:00 07/30/20 08:22 Docusate Sodium 100 Mg Capsule PO 100 mg BID ALBERTO Administration Insulin Glargine 56 unit 07/20/20 21:00 07/29/20 21:35 Insulin Glargine,Hum.Rec.Anlog 100 Unit/Ml 10 Ml Vial SUBCUT 56 unit BEDTIME ALBERTO Administration Insulin Human Lispro 0 unit 07/20/20 16:30 07/30/20 08:22 Insulin Lispro 100 Unit/Ml 3 Ml Vial SUBCUT 6 unit QIDACHS ALBERTO Administration Protocol Lorazepam 1 mg 07/28/20 16:24 07/30/20 02:59 Lorazepam 1 Mg Tablet PO 1 mg TID PRN Administration anxiety/restlessness Magnesium Hydroxide 30 ml 07/20/20 22:03 07/28/20 21:46 Milk Of Magnesia 30 Ml Oral.Susp PO 30 ml DAILY PRN Administration Constipation Metformin HCl 500 mg 07/20/20 21:00 07/30/20 08:22 Metformin Hcl 500 Mg Tablet PO 500 mg BID ALBERTO Administration Metoprolol Tartrate 25 mg 07/20/20 21:00 07/30/20 08:22 Metoprolol Tartrate 25 Mg Tablet PO 25 mg BID ALBERTO Administration Protocol Multivitamins/Vitamin C 1 tab 07/21/20 09:00 07/30/20 08:22 Multivitamin Tablet PO 1 tab DAILY ALBERTO Administration Omeprazole 20 mg 07/21/20 09:00 07/30/20 08:22 Omeprazole 20 Mg Capsule. PO 20 mg DAILY ALBERTO Administration Senna 17.2 mg 07/20/20 15:34 Sennosides 8.6 Mg Tablet PO DAILY PRN Constipation Trazodone HCl 50 mg 07/20/20 22:03 07/30/20 02:59 Trazodone Hcl 50 Mg Tablet PO 50 mg BEDTIME PRN Administration Insomnia Allergies Allergies Allergy/AdvReac Type Severity Reaction Status Date / Time No Known Allergies Allergy Verified 07/19/20 20:25 Assessment & Plan Assessment & Plan (1) Schizoaffective disorder, bipolar type: Status: Resolved Code(s): F25.0 - Schizoaffective disorder, bipolar type Assessment and Plan: recent dc thorazine due to TD now on vraylar. Coordinate with legal guardians/Dr Grijalva Provider meeting Fri (2) Developmental delay, mild: Code(s): R62.50 - Unspecified lack of expected normal physiological development in childhood Assessment and Plan: static (3) Diabetes: Status: Acute Code(s): E11.9 - Type 2 diabetes mellitus without complications Assessment and Plan: following poc (4) Tardive dyskinesia: Status: Acute Code(s): G24.01 - Drug induced subacute dyskinesia Assessment and Plan: Ct Vtraylar 3. Plan for provider meeting Greater than 50% of the session was spent on counseling and/or coordination of care
[2020-07-30 11:48] LABS: Glucose, Whole Blood 175 mg/dL (60-115)
[2020-07-30 14:21] LABS: COVID-19 Test Negative (Negative)
[2020-07-30 17:22] LABS: Glucose, Whole Blood 209 mg/dL (60-115)
[2020-07-30 21:25] LABS: Glucose, Whole Blood 285 mg/dL (60-115)
[2020-07-30 21:34] VITALS: BP 108/59; PULSE 86
[2020-07-30 21:35] VITALS: BP 108/85; PULSE 86; TEMP 36.9
[2020-07-30] MEDS: Atorvastatin Calcium 10 MG TABLET PO (21:38)
[2020-07-30] MEDS: Insulin Glargine,Hum.rec.anlog 100 UNIT/ML 10 ML VIAL 56 UNIT SUBCUT (21:38)
[2020-07-31 06:00] VITALS: BP 122/64; PULSE 73; RESP 16; TEMP 36.3; O2SAT 98
[2020-07-31 06:26] LABS: Glucose, Whole Blood 181 mg/dL (60-115)
--- NOTE | 2020-07-31 08:32 | PM.PSYDC ---
DS: Providers Provider Date of admission: 07/20/20 22:04 Primary care physician: Unknown Physician DS: Diagnosis Discharge Diagnosis (1) Schizoaffective disorder, bipolar type: Status: Resolved (2) Developmental delay, mild: (3) Diabetes: Status: Acute (4) Tardive dyskinesia: Status: Acute DS: Medications Discharge Medications Home Medications: Home Medications Medication Instructions Recorded Confirmed multivitamin 1 tab PO DAILY 07/20/20 07/20/20 Previous Rx's Medication Instructions Recorded cariprazine [Vraylar] 3 mg PO DAILY 30 Days #30 cap 07/26/20 docusate sodium 100 mg PO BID 30 Days #60 cap 07/26/20 insulin glargine [Lantus U-100 56 unit SUBCUT BEDTIME 30 Days 07/26/20 Insulin] #16.8 ml insulin lispro [Humalog U-100 See Protocol SUBCUT QIDACHS 30 07/26/20 Insulin] Days #10 ml metformin 500 mg PO BID 30 Days #60 tab 07/26/20 metoprolol tartrate 25 mg PO BID 30 Days #60 tab 07/26/20 omeprazole 20 mg PO DAILY 30 Days #30 cap 07/26/20 sennosides [senna] 17.2 mg PO DAILY PRN 30 Days #30 07/26/20 tab simvastatin 20 mg PO BEDTIME 30 Days #30 tab 07/26/20 trazodone 50 mg PO BEDTIME PRN 30 Days #30 07/26/20 tab Discharge Plan Discharge Patient Disposition: Xfer Other Referrals: Negin Kapadia PA [Physician Tool Dispatcher] - 08/03/20 9:15 am (VIRTUAL VIDEO) Jose E Ruff MD [Physician] - 08/03/20 3:00 pm (Telehealth appointment) Discharge Medications: New Lantus U-100 Insulin 100 unit/mL Solution 56 unit subcut BEDTIME 30 Days Qty: 16.8 RF: 0 trazodone 50 mg Tablet 50 mg PO BEDTIME PRN (Reason: Insomnia) 30 Days Qty: 30 RF: 0 insulin lispro [Humalog U-100 Insulin] 100 unit/mL Solution See Protocol unit subcut QIDACHS 30 Days Qty: 10 RF: 0 Vraylar 3 mg Capsule 3 mg PO DAILY 30 Days Qty: 30 RF: 0 Continued multivitamin Tablet 1 tab PO DAILY RF: 0 metformin 500 mg Tablet 500 mg PO BID 30 Days Qty: 60 RF: 0 sennosides [senna] 8.6 mg Tablet 17.2 mg PO DAILY PRN (Reason: Constipation) 30 Days Qty: 30 RF: 0 simvastatin 20 mg Tablet 20 mg PO BEDTIME 30 Days Qty: 30 RF: 0 docusate sodium 100 mg Capsule 100 mg PO BID 30 Days Qty: 60 RF: 0 omeprazole 20 mg Capsule,Delayed Release(Dr/Ec) 20 mg PO DAILY 30 Days Qty: 30 RF: 0 metoprolol tartrate 25 mg Tablet 25 mg PO BID 30 Days Qty: 60 RF: 0 Discontinued lorazepam 0.5 mg Tablet 0.5 mg PO TID RF: 0 chlorpromazine 200 mg Tablet 200 mg PO TID RF: 0 insulin lispro 100 unit/mL Cartridge 1 sliding scale dose SUBCUT USEASDIRECTD RF: 0 insulin glargine 100 unit/mL Cartridge 56 unit SUBCUT QPM RF: 0 Discharge Orders: Discharge Order (Routine); Ordered 07/31/20 Ordered By: Xavier Hickman Diet: diabetic diet Activity on Discharge: No Restrictions Stand Alone Forms: Community Support Discharge Date/Time: 07/31/20 11:30 Visit Report Forms: Patient Portal Discharge page Care Plan Goals: stabilize mood reduce paranoia Stabilize living situation Health Concerns: SI Mood swings paranoia Plan of Treatment: Return to [facility] meds and [facility] services Data Data Completed and Pending Completed studies during hospitalization [Text1]: 07/24/20 07/24/20 07/24/20 11:23 17:11 20:57 Creatinine Estim Creat Clear Calc Estimated GFR POC Glucose 167 H 254 H 215 H COVID-19 (JACKIE) COVID-19 Clin [facility] 07/25/20 07/25/20 07/25/20 06:00 11:48 16:59 Creatinine Estim Creat Clear Calc Estimated GFR POC Glucose 290 H 179 H 299 H COVID-19 (JACKIE) COVID-19 Clin Com 07/25/20 07/26/20 07/26/20 20:07 06:09 12:11 Creatinine Estim Creat Clear Calc Estimated GFR POC Glucose 296 H 127 H 185 H COVID-19 (JACKIE) COVID-19 Clin Com 12/05/0707/26/20 07/27/20 16:27 20:33 06:25 Creatinine Estim Creat Clear Calc Estimated GFR POC Glucose 240 H 257 H 155 H COVID-19 (JACKIE) COVID-19 Clin Com 07/27/20 07/27/20 07/27/20 07:52 11:59 16:54 Creatinine 0.75 Estim Creat Clear Calc 138.5 Estimated GFR > 60 POC Glucose 177 H 307 H COVID-19 (JACKIE) COVID-19 Clin Com 07/27/20 07/28/20 07/28/20 20:46 06:22 12:14 Creatinine Estim Creat Clear Calc Estimated GFR POC Glucose 281 H 83 197 H COVID-19 (JACKIE) COVID-19 Clin Com 07/28/20 07/28/20 07/29/20 17:08 21:05 06:19 Creatinine Estim Creat Clear Calc Estimated GFR POC Glucose 221 H 300 H 134 H COVID-19 (JACKIE) COVID-19 Clin Com 07/29/20 07/29/20 07/29/20 12:01 17:05 21:30 Creatinine Estim Creat Clear Calc Estimated GFR POC Glucose 208 H 315 H 283 H COVID-19 (JACKIE) COVID-19 Clin Com 07/30/20 07/30/20 07/30/20 05:56 11:45 13:59 Creatinine Estim Creat Clear Calc Estimated GFR POC Glucose 261 H 175 H COVID-19 (JACKIE) Negative COVID-19 Clin Com See Note 07/30/20 07/30/20 07/31/20 17:01 21:15 06:08 Creatinine Estim Creat Clear Calc Estimated GFR POC Glucose 209 H 285 H 181 H COVID-19 (JACKIE) COVID-19 Clin Com DS: Summary Hospital Course Hospital Course: 39 SWM with Long Hx of Schizoaffective disorder and developmental delay came to ER from [facility] in [place] with SI. Pt unhappy about jail. States residents talk about him, staff yell at him making him feel unsafe. Pt not known to or CARE. States vague SI. Wants to go to [facility] jail in [place] where he has a friend. 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 Wants off Thorazine. States he was at [facility] x 4 months then [facility] x 3 months till May 2020. Has [facility] order (in Chart). Recent Hx X elopements from [facility] with consequent non compliance with meds. Past Psychiatric History: As above. Has [facility] providers. Sees Dr Grijalva at [facility]. Is extensively connected with [facility]/D[facility] services. Pt was relieved to be in milieu and insisted he did not want to return to current . Stated he was yelled at by staff and peers, does not feel safe. Also Thorazine was DCd as pt did not wish to take it and early TD was noticed. Case DW Dr Grijalva his OP psychiatrist who had started Julius Slater order was being amended, Hospital stay was largely uneventful. An All provider meeting was held. Pt was returned to current as he did not have any other realistic option including [facility] or [facility] (as he wanted). [facility] is working towards an alternative placement but it is a few months away. Status at Discharge Functional status at discharge: independent ambulation Overall status at discharge: patient is back to baseline Time Spent with Patient Time attestation: Total time spent providing and/or coordinating discharge services: Time spent: Greater than 30 minutes
[2020-07-31 09:03] VITALS: BP 122/64; PULSE 73
[2020-07-31] MEDS: Metoprolol Tartrate 25 MG TABLET PO (09:03)
[2020-07-31] MEDS: Multivitamin TABLET 1 TAB PO (09:03)
[2020-07-31] MEDS: metFORMIN HCl 500 MG TABLET PO (09:03)
[2020-07-31] MEDS: Omeprazole 20 MG CAPSULE.DR PO (09:03)
[2020-07-31] MEDS: Cariprazine HCl 3 MG CAPSULE PO (09:03)
[2020-07-31] MEDS: Docusate Sodium 100 MG CAPSULE PO (09:03)
[2020-07-31] MEDS: Insulin Lispro 100 UNIT/ML 3 ML VIAL SUBCUT (09:04)
== END 2020-07-31 11:30 | disposition other institution (70) | DRG 750 ==
LOC: HO.ED 22:26 → HO.PM5 22:28
PROVIDERS: Nurse Practitioner Primary Care; Admitting Provider Psychiatry & Neurology Psychiatry; Emergency Provider Emergency Medicine; Visit Provider Psychiatry & Neurology Psychiatry
DX: F25.0 Schizoaffective disorder, bipolar type (principal); R45.851 Suicidal ideations; E11.9 Type 2 diabetes mellitus without complications; F17.210 Nicotine dependence, cigarettes, uncomplicated; Z71.6 Tobacco abuse counseling; R62.50 Unspecified lack of expected normal physiological development in childhood; G24.01 Drug induced subacute dyskinesia; T43.3X5A Adverse effect of phenothiazine antipsychotics and neuroleptics, initial encounter; Y92.9 Unspecified place or not applicable; Z20.828 Contact with and (suspected) exposure to other viral communicable diseases; Z79.4 Long term (current) use of insulin; Z79.899 Other long term (current) drug therapy
CPT/HCPCS: 36415; 80053; 80307; 80320; 82565; 82947; 85025; 87635; 93005; 99223; 99232; 99239; 99285; Q0163